=== PATIENT | male | born 2005 | race Caucasian/White ===

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

== ENCOUNTER → 2023-01-28 | Outpatient (CLI) | payer BC, MEDICAID, SELFPAY ==
[2023-01-28 12:09] LABS: Absolute Lymphocyte Count 1.44 X10^3/uL (0.83-4.51); Absolute Neutrophil Count 4.7 X10^3/uL (2.0-7.7); Basophil# 0.02 X10^3/uL; Basophil% 0.3 % (0-1); Eosinophil# 0.12 X10^3/uL; Eosinophils% 1.7 % (0-5); Lymphocyte # 1.44 X10^3/ul (0.83-4.51); Lymphocyte % 20.7 % (19-41); Mean Corp Hgb Conc 34.8 g/dL (32-36); Mean Corpuscular Hgb 30.4 pg (27.0-32.0); Mean Corpuscular Volume 87.5 fL (80-94); Mean Platelet Vol. 10.1 fl (6.2-12.0); Monocyte# 0.68 X10^3/uL; Monocyte% 9.8 % (0-10); NRBC Flagged by Analyzer 0 % (0-5); Neutrophil # 4.66 X10^3/uL (2.7-7.7); Neutrophil % 67.2 % (47-70); Platelet Count 298 K/mm3 (150-450); RBC Distribution Width CV 11.9 % (11.6-14.6); RBC Distribution Width SD 38.5 fl (35.1-43.9); Red Blood Count 5.26 M/mm3 (4.6-6.2); White Blood Count 6.9 K/mm3 (4.4-11.0)
[2023-01-28 13:16] LABS: ALB/GLOB Ratio 1.1 RATIO (0.9-2.4); AST(SGOT) 20 U/L (15-37); Alanine Aminotransfer ALT/SGPT 39 U/L (16-61); Alkaline Phosphatase 87 U/L (45-117); Anion Gap 7 (5-15); BUN 14 mg/dL (7-18); BUN/Creat Ratio 15.5 RATIO (10-20); Calcium,Total 9.2 mg/dL (8.5-10.1); Chloride 110 mmol/L (98-107); Cholesterol 181 mg/dL (200); EST Glomerular Filtration Rate 114 mL/min (>60); Est Glom Filt Rate - Afr Amer 138 mL/min (>60); Globulin 3.5 g/dL (2.2-4.2); Glucose 105 mg/dL (74-106); High Density Lipoprotein 36 mg/dL; Potassium 4.1 mmol/L (3.5-5.1); Protein, Total 7.5 g/dL (6.4-8.2); Sodium Level 141 mmol/L (136-145); Thyroid Stim Hormone (TSH) 0.86 uIU/mL (0.358-3.74); Triglycerides 217 mg/dL; Very Low Density Lipoprotein 43 mg/dL (5-40)
== END | disposition home or self-care (01) ==
LOC: BIMLAB 10:55
PROVIDERS: PCP Nurse Practitioner Family; Referring Provider Nurse Practitioner Family; Visit Provider Nurse Practitioner Family
DX: R63.5 Abnormal weight gain (principal); F41.1 Generalized anxiety disorder; M25.511 Pain in right shoulder
CPT/HCPCS: 36415; 80053; 80061; 84443; 85025

== ENCOUNTER 2023-06-04 22:25 | Emergency (ER) | payer BC, MEDICAID, SELFPAY ==
[2023-06-04 22:25] VITALS: BP 166/103; PULSE 100; RESP 15; TEMP 36.2; O2SAT 94; BMI 31.9
--- NOTE | 2023-06-04 23:03 | RAD_ITS ---
INDICATION: pain EXAMINATION/TECHNIQUE: X-RAY - LEFT XR Hand Min 3 Views 3 VIEWS COMPARISON: none FINDINGS: SOFT TISSUES: No soft tissue swelling or gas. No radiopaque foreign body. BONES/JOINTS: No acute fracture.] Compression screw fixation of the scaphoid without significant sclerosis.. Normal alignment. Preservation of the joint space.. No sclerotic or destructive changes observed. RAD/Hand Min 3 Views IMPRESSION: No acute osseous finding. Previous scaphoid compression screw fixation without evidence of osteonecrosis. Electronically Signed: Gorge Michaud MD at 23:48 EDT ,
--- NOTE | 2023-06-04 23:05 | RAD_ITS ---
STUDY: X-RAY - LEFT CLAVICLE REASON FOR EXAM: Male, 18 years old. pain TECHNIQUE: 2 view(s) of the left clavicle. COMPARISON: February 27, 2022 chest radiograph FINDINGS: No fracture. Normal acromioclavicular articulation. Normal visualized sternoclavicular articulation. Normal mineralization. Normal visualized pulmonary apex. RAD/Clavicle IMPRESSION: Normal x-ray examination of the clavicle. Electronically Signed: Gorge Michaud MD at 23:41 EDT ,
[2023-06-04] MEDS: Acetaminophen 500 MG Tablet 1000 MG PO (23:08)
--- NOTE | 2023-06-04 23:39 | CT_ITS ---
INDICATION: head injury EXAMINATION: CT BRAIN - CT Head or Brain W/O Contrast Injection TECHNIQUE: Multiple axial images were obtained of the head without intravenous contrast. A radiation dose optimization technique was used for this scan. IV Contrast dosage and agent: None. COMPARISON: [Normal FINDINGS: BRAIN PARENCHYMA: No intra- or extra-axial hemorrhage. No evidence of acute infarct. No intracranial mass or mass effect. Unremarkable white matter for age. There is preservation of the griffith/white matter interface. Posterior fossa structures are unremarkable. CSF SPACES: Cerebral volume appropriate for age. No hydrocephalus. Basal cisterns are patent. CALVARIUM, SKULL BASE, PARANASAL SINUSES AND MASTOID AIR CELLS: No acute osseous finding. Paransasal sinuses are clear. Mastoid air cells are clear. ORBITS: Both globes, extraocular muscles, optic nerves and retrobulbar fat appear unremarkable. ASPECTS Score for Acute Strokes: 10 CT/Brain/Head without Contrast IMPRESSION: No CT evidence of acute intracranial hemorrhage or injury. Electronically Signed: Gorge Michaud MD at 0:13 EDT ,
--- NOTE | 2023-06-04 23:39 | ED.RN ---
pt c/o ringing in right ear, vision changes, blurry just don't feel right Dr. Salomon informed of same, new orders received.
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
== END 2023-06-05 00:36 | disposition home or self-care (01) ==
PROVIDERS: Emergency Provider Emergency Medicine; PCP Nurse Practitioner Family; Visit Provider Emergency Medicine
DX: S40.012A Contusion of left shoulder, initial encounter (principal); S63.602A Unspecified sprain of left thumb, initial encounter; V43.62XA Car passenger injured in collision with other type car in traffic accident, initial encounter; W22.12XA Striking against or struck by front passenger side automobile airbag, initial encounter; Y92.410 Unspecified street and highway as the place of occurrence of the external cause; F41.1 Generalized anxiety disorder
CPT/HCPCS: 70450; 73000; 73130; 99283

== ENCOUNTER → 2023-11-12 | Outpatient (CLI) | payer SELFPAY ==
--- NOTE | 2023-11-12 09:43 | RAD_ITS ---
INDICATION: constipation EXAMINATION/TECHNIQUE: X-RAY - XR Abdomen W/ Decub and/or Erect Views COMPARISON: None FINDINGS: BOWEL GAS PATTERN: Non-obstructive. Small amount of retained stool in the colon. FREE AIR: Not assessed on a single supine view. ORGANOMEGALY: Not seen. CALCIFICATIONS: No abnormal calcifications observed. LOWER CHEST: No acute pathology. BONES AND SOFT TISSUES: No acute pathology. RAD/[employer] Decub and/or Erect IMPRESSION: Non-obstructive bowel gas pattern. Small amount of retained stool in colon. Electronically Signed: Dani Lin MD at 19:43 EST ,
--- NOTE | 2023-11-12 09:43 | RAD_ITS ---
INDICATION: back pain EXAMINATION/TECHNIQUE: X-RAY - XR Spine Thoracic 3 Views COMPARISON: None FINDINGS: VERTEBRAE: Preserved vertebral body height. No fracture. No spondylolisthesis. Preservation of the normal thoracic kyphosis. No significant facet arthropathy. DISCS: Disc spaces are maintained. INCLUDED CHEST/ABDOMEN: No acute abnormalities. RAD/Thoracic Spine 3 Views IMPRESSION: No evidence of thoracic spinal fracture or spondylolisthesis. Electronically Signed: Dani Lin MD at 19:44 EST ,
--- NOTE | 2023-11-12 09:45 | RAD_ITS ---
INDICATION: chest wall pain EXAMINATION/TECHNIQUE: X-RAY - XR Ribs Unilateral W/ PA Chest Min 3 Views COMPARISON: FINDINGS: SOFT TISSUES: No soft tissue swelling or gas. BONES: No displaced fracture. No sclerotic or destructive changes observed. VISUALIZED LUNGS: Clear. No pneumothorax. RAD/Ribs Uni Min 3V w/PA Chest IMPRESSION: No evidence of displaced rib fracture. Electronically Signed: Arie Bowden DO at 18:30 EST ,
--- OUTSIDE RECORDS SUMMARY | 2023-11-12 10:06 | XMS RPT_ITS | CCD ---
Author Name Unknown Address [address] [place] [address] Organization [facility] Results Test Name Value Interpretation Reference Range Facil ity Summary Purpose Family History No Family History Records Found Advance Directives No Advanced Directives Records Found Additional Source Comments (unrecognized sect ion and content) No Status Records Found INFORMATION SOURCE (unrecogn ized section and content) FOR RECORDS PERTAINING TO PATIENTS WHO ARE OR HAVE BEEN ENROLLED IN A CHEMICAL DEPENDENCY/SUBSTANCEABUSE PROGRAM, SOME INFORMATION MAY BE OMITTED. This clinical summary was aggregated from multiple sources. Caution should be exercised in using it in the provision of clinical care. This summary normalizes information from multiple sources, and as a consequence, information in this document may materially change the coding, format and clinical context of patient data. In addition, data may be omitted in some cases. CLINICAL DECISIONS SHOULD BE BASED ON THE PRIMARY CLINICAL RECORDS. [employer] provides no warranty or guarantee of the accuracy or completeness of information in this document.
== END | disposition home or self-care (01) ==
LOC: RAD 09:41
PROVIDERS: PCP Nurse Practitioner Family; Referring Provider Internal Medicine Gastroenterology; Visit Provider Internal Medicine Gastroenterology
DX: M54.6 Pain in thoracic spine (principal); R10.9 Unspecified abdominal pain; R07.89 Other chest pain
CPT/HCPCS: 71101; 72072; 74019

== ENCOUNTER → 2024-03-30 | Outpatient (CLI) | payer OTHER, SELFPAY ==
[2024-03-30 13:05] LABS: Vitamin B12 620 pg/mL (211-911); Vitamin D,25 Hydroxy 44.1 ng/mL
[2024-03-30 13:37] LABS: ALB/GLOB Ratio 1.2 RATIO (0.9-2.4); AST(SGOT) 28 U/L (15-37); Alanine Aminotransfer ALT/SGPT 34 U/L (16-61); Albumin, Serum 4.1 g/dL (3.2-5.0); Alkaline Phosphatase 75 U/L (45-117); Anion Gap 6 (5-15); BUN 15 mg/dL (7-18); BUN/Creat Ratio 17.6 RATIO (10-20); Chloride 108 mmol/L (98-107); Cholesterol 156 mg/dL (200); Creatinine, Serum 0.85 mg/dL (0.70-1.30); EST Glomerular Filtration Rate 120 mL/min (>60); Est Glom Filt Rate - Afr Amer 145 mL/min (>60); Globulin 3.5 g/dL (2.2-4.2); Glucose 94 mg/dL (74-106); High Density Lipoprotein 48 mg/dL; Potassium 4.2 mmol/L (3.5-5.1); Protein, Total 7.6 g/dL (6.4-8.2); Sodium Level 138 mmol/L (136-145); Triglycerides 55 mg/dL; Very Low Density Lipoprotein 11 mg/dL (5-40)
[2024-03-30 21:40] LABS: Absolute Neutrophil Count 5.1 X10^3/uL (2.0-7.7); Basophil# 0.05 X10^3/uL; Basophil% 0.7 % (0-1); Eosinophil# 0.06 X10^3/uL; Eosinophils% 0.8 % (0-5); Hemoglobin 15.1 g/dL (13.0-16.5); Lymphocyte % 18.4 % (19-41); Mean Corp Hgb Conc 33.6 g/dL (32-36); Mean Corpuscular Hgb 29.5 pg (27.0-32.0); Mean Corpuscular Volume 88.1 fL (80-94); Mean Platelet Vol. 10.5 fl (6.2-12.0); Monocyte# 0.53 X10^3/uL; Monocyte% 7.5 % (0-10); NRBC Flagged by Analyzer 0 % (0-5); Neutrophil # 5.06 X10^3/uL (2.7-7.7); Neutrophil % 71.8 % (47-70); Platelet Count 354 K/mm3 (150-450); RBC Distribution Width CV 12.2 % (11.6-14.6); RBC Distribution Width SD 39.5 fl (35.1-43.9); Red Blood Count 5.11 M/mm3 (4.6-6.2); White Blood Count 7.1 K/mm3 (4.4-11.0)
== END | disposition home or self-care (01) ==
LOC: VSLAB 09:30
PROVIDERS: PCP Nurse Practitioner Family; Visit Provider Nurse Practitioner Family
DX: Z00.00 Encounter for general adult medical examination without abnormal findings (principal); E56.9 Vitamin deficiency, unspecified
CPT/HCPCS: 36415; 80053; 80061; 82306; 82607; 83036; 84443; 85025

== ENCOUNTER 2025-05-20 17:43 | Emergency (ER) | payer SELFPAY ==
[2025-05-20 17:44] VITALS: BP 169/102; PULSE 116; RESP 18; TEMP 36.6; O2SAT 98; BMI 30.7
--- NOTE | 2025-05-20 18:11 | EDS_ITS ---
HPI History of Present Illness Chief Complaint: Numb/Ting PFSH PFSH Medical History Asthma Back pain Bilateral hydrocele Closed fracture of scaphoid of left wrist (~01/2021) Encounter for preventative adult health care examination Epidermoid cyst of skin of inguinal region Generalized anxiety disorder Hypersomnia Infection Injury of left hand Left wrist injury Major depression, single episode Neck pain, acute Panic attacks Paresthesia of lower extremity Pilonidal cyst Pilonidal cyst with abscess PTSD (post-traumatic stress disorder) Right shoulder pain Weight gain Home Medications ?Medication ?Instructions ?Recorded ?Last Taken ?Type duloxetine 60 mg capsule,delayed See Rx Instructions . Route 04/08/23 Unknown Rx release .COMPLEX #30 caps hydroxyzine HCl 25 mg tablet 25 mg PO TID PRN anxiety #20 tabs 05/20/25 Unknown Rx Allergy/AdvReac Type Severity Reaction Status Date / Time No Known Allergies Allergy Verified 05/20/25 17:45 Family History Father Alcoholism Asthma Prostate CA Mental disorder Mother Anemia Anxiety Depression Diabetes Hypertension Grandmother Depression Grandfather Myocardial infarction Skin cancer Surgical History H/O wrist surgery Social History Smoking Status: Never smoker alcohol intake: current details: social substance use type: marijuana what type of physical activity do you participate in: weight training frequency: 5-6 times per week EXAM Physical Exam Const Vital Signs: 05/20/25 17:44 05/20/25 18:35 05/20/25 18:44 Temperature 98 F 97.9 F Temperature Source Oral Pulse Rate 116 H 94 94 Respiratory Rate 18 23 H 23 H Blood Pressure 169/102 H 132/90 H 132/90 H Blood Pressure Mean 124 104 104 Pulse Ox 98 96 96 Oxygen Delivery Method Room Air Room Air MDM MDM MDM Narrative Medical decision making narrative: HISTORY OF PRESENT ILLNESS: Chief complaint: Numbness/tingling/paresthesias 20-year-old male history of of depression, PTSD, panic attacks, anxiety, notes he was driving to his prior to arrival he felt like his hands were becoming numb started breathing really fast and feeling anxious he noted the numbness continued to worsen move up his arms surrounded his mouth. This has since essentially resolved. Denies any head trauma. Denies neck pain. Denies slurred speech, facial drooping, focal weakness numbness or loss of sensation or coordination. REVIEW OF SYSTEMS: Pertinent positives: Numbness, tingling Pertinent negatives: As per HPI PHYSICAL EXAM: Nursing triage notes reviewed, Vital signs reviewed Constitutional: please see [facility] HENT: MMM Eyes: Pupils equal round and reactive to light, Extraocular muscles intact Neck: No stridor, no JVD, full neck ROM Lungs: Clear to auscultation, No wheezing or rales. No increased work of breathing, no conversational dyspnea, no accessory muscle use, no nasal flaring. No respiratory distress noted Heart: Regular rate and rhythm, No murmurs, No rubs and No gallops, 2+ distal pulses (radial, femoral, posterior tibial) in all extremities Abdomen: Soft, there is no tenderness, rigidity, rebound or guarding, no obvious peritoneal signs, no palpable pulsatile abdominal masses, no auscultated abdominal bruit : No CVAT Extremities: No edema Neuro: Alert and oriented x3, neuro exam at baseline, cranial nerves II through XII are intact. No pain with extraocular muscle movement. There is negative test of skew. 5 of 5 strength in upper and lower extremities in flexion extension. Intact sensation to light touch in upper and lower extremity dermatomes. No truncal or extremity ataxia. No dysdiadochokinesia. Normal gait. 2+ reflexes in upper and lower extremities. No meningeal signs. Negative Babinski. NIH of 0. Skin: No rash or lesions noted MEDICAL DECISION MAKING: Chief Complaint: please see [facility] External records reviewed: Reviewed prior ED visit Factors affecting care: As per [facility] Social determinants of health: none History obtained from others: none Consults: none [facility] Narrative: Patient was initially hypertensive with a blood pressure 169/102, tachycardic with heart rate 116, afebrile and nontoxic-appearing. Exam without focal neurologic deficits. I considered the following differential diagnosis: Hyperventilation, acute CVA Patient's exam is most consistent with hyperventilation. There are no focal neurologic deficits to suggest ICH, spinal cord injury, CVA. Repeated vital signs for the resolved. Patient noted complete resolution of symptoms now that he is more calm. I suspect he is suffering from hyperventilation. The patient and/or family, caregivers express understanding. The patient and/or family, caregivers agrees with the plan. Shared decision making: I will have a discussion with the patient and or visitors regarding risk/benefits of further testing or admission. They will be made aware of of the risk/benefits inherent in this decision they will be given the opportunity to voice understanding. Total critical care time today provided was at least 0 minutes. This excludes separately billable procedures. Critical care time (if documented) is secondary to the patient having high probability of clinically significant/life threatening deterioration in the patient's condition which required my urgent intervention. Impression: 1. Acute hyperventilation syndrome 2. History of anxiety Dispo: Discharge home This note was generated with [employer] dictation software. It may contain incorrect words, spelling, and punctuation that were not noted in review of the chart prior to signing. Discharge Plan Triage Chief Complaint: Numb/Ting ED Provider: Polo Crespo Dx/Rx/DC Orders Clinical Impression: Acute hyperventilation Instructions: ED Hyperventilation Syndrome Prescriptions: New hydroxyzine HCl 25 mg tablet 25 mg PO TID PRN (Reason: anxiety) Qty: 20 0RF No Action duloxetine 60 mg capsule,delayed release(DR/EC) See Rx Instructions .ROUTE .COMPLEX Qty: 30 0RF Dose Instruction: TAKE 1 CAPSULE BY MOUTH ONCE DAILY Rx Instructions: TAKE 1 CAPSULE BY MOUTH ONCE DAILY Primary Care Provider: Feng Johnson Referrals: Feng Johnson, HOT SEALING MACHINE OPERATOR-C [Primary Care Provider] - Activity Restrictions/Additional Instructions: Thank you for trusting us with your care today! Your presentation is most consistent with hyperventilation. Your neurologic exam was not consistent with a life or limb threatening emergency such as stroke, bleeding in the brain or spinal cord injury. Please take prescribed hydroxyzine as needed for anxiety. Please return to the emergency department if your symptoms change or worsen. Please follow with your primary care physician for further outpatient evaluation and management. Print Language: Scottish Disposition Disposition: Home, Self Care
--- OUTSIDE RECORDS SUMMARY | 2025-05-20 18:33 | XMS RPT_ITS | CCD ---
Author Organization [facility] Care Team Providers Care Landscaping Specialist Name Role Phone Mcbride REGISTERED PHARMACY TECHNICIAN, REGISTERED PHARMACY TECHNICIAN-C Kendall Primary Care Provider Reed REGISTERED PHARMACY TECHNICIAN, REGISTERED PHARMACY TECHNICIAN-C Kendall Attending Provider Reed REGISTERED PHARMACY TECHNICIAN, REGISTERED PHARMACY TECHNICIAN-C Kendall Referring Provider BETO Eid-C Laura Attending Provider Dr. Hussein Terrazas Attending Provider BETO Jean Attending Provider Dr. Beny Lorenzo Attending Provider Dr. Tracie Anderson Attending Provider [phone] Gabino, Dr. Pathak Attending Provider Reed REGISTERED PHARMACY TECHNICIAN, Kendall Primary Care Unavailable Gorge Jean Attending Unavailable Mcbride REGISTERED PHARMACY TECHNICIAN, Kendall Referring Unavailable Mcbride REGISTERED PHARMACY TECHNICIAN, Kendall Referring Unavailable Mcbride REGISTERED PHARMACY TECHNICIAN, Kendall Primary Care Unavailable Michelle Valentin Attending Unavailable Mcbride REGISTERED PHARMACY TECHNICIAN, Kendall Referring Unavailable Lawson Lloyd Attending Unavailable Mcbride REGISTERED PHARMACY TECHNICIAN, Kendall Primary Care Unavailable FriendLawson Referring Unavailable Lawson Lloyd Attending Unavailable Mcbride VSC, Kendall Primary Care Unavailable Mcbride VSC, Kendall Attending Unavailable Mcbride VSC, Kendall Primary Care Unavailable Mcbride REGISTERED PHARMACY TECHNICIAN, Kendall Primary Care Unavailable Daniel Salomon Attending Unavailable Mcbride REGISTERED PHARMACY TECHNICIAN, Kendall Primary Care Unavailable Beny Lorenzo Attending Unavailable Medications Current Medications Medication Drug Class(es) Dates Sig (Normalized) Sig (Original) ALPRAZolam 1 mg oral tablet (3 sources) Benzodiazepine Start: 03-10-2022 take 1 tablet by mouth twice daily Alprazolam (Xanax) 1 mg tablet Active 1 MG PO TWICE A DAY 30 March 10, 2022 12:00am DULoxetine 30 mg delayed release oral capsule (3 sources) Serotonin and Norepinephrine Reuptake Inhibitor Start: 03-09-2022 take 1 capsule by mouth once daily Duloxetine (Cymbalta) 30 mg capsule,delayed release(DR/EC) Active 30 MG PO DAILY March 09, 2022 12:00am meloxicam 15 mg oral tablet (9 sources) Nonsteroidal Anti-inflammatory Drug Start: 02-26-2022 End: 02-28-2022 take 15 mg by mouth once daily Meloxicam Active 15 MG PO DAILY February 28, 2022 12:49pm [place] (Nk) (1 source) Start: 01-23-2022 [place] (Nk) Active January 23, 2022 12:00am Completed/Discontinued Medications Medication Drug Class(es) Dates Sig (Normalized) Sig (Original) adapalene 0.003 mg/mg / benzoyl peroxide 0.025 mg/mg topical gel (6 sources) Retinoid Start: 06-09-2018 End: 10-10-2021 Adapalene-Benzoyl Peroxide (Epiduo Forte) 0.3-2.5 % gel with pump Discontinued 1 APPLIC TOPICAL DAILY June 09, 2018 12:00am October 10, 2021 10:21am amoxicillin 875 mg / clavulanate 125 mg oral tablet (18 sources) Penicillin-class Antibacterial Start: 01-23-2022 End: 02-11-2022 take 1 tablet by mouth twice daily Amoxicillin-Pot Clavulanate Discontinued 1 TABLET PO TWICE A DAY January 23, 2022 3:03pm February 11, 2022 1:40pm Start: 10-10-2021 End: 10-24-2021 take 1 tablet by mouth twice daily Amoxicillin-Pot Clavulanate Discontinued 1 TABLET PO TWICE A DAY October 10, 2021 10:57am October 24, 2021 10:15am hydrOXYzine hydrochloride 25 mg oral tablet (3 sources) Antihistamine Start: 03-02-2022 End: 03-13-2022 take 25 mg by mouth three times daily Hydroxyzine Hcl Discontinued 25 MG PO THREE TIMES A DAY March 02, 2022 12:00am March 13, 2022 10:11am ibuprofen 200 mg oral capsule (6 sources) Nonsteroidal Anti-inflammatory Drug Start: 06-09-2018 End: 10-10-2021 take 200 mg by mouth three times daily Ibuprofen Discontinued 200 MG PO THREE TIMES A DAY June 09, 2018 12:00am October 10, 2021 10:20am 24 hr mirabegron 25 mg extended release oral tablet (6 sources) beta3-Adrenergic Agonist Start: 03-15-2019 End: 10-10-2021 Mirabegron Discontinued PO 90 March 15, 2019 12:00am October 10, 2021 10:20am naproxen 500 mg oral tablet (6 sources) Nonsteroidal Anti-inflammatory Drug Start: 08-23-2017 End: 10-10-2021 take 500 mg by mouth every twelve hours Naproxen Discontinued 500 MG PO Q12H August 23, 2017 1:00am October 10, 2021 10:20am sulfamethoxazole 800 mg / trimethoprim 160 mg oral tablet (6 sources) Dihydrofolate Reductase Inhibitor Antibacterial, Sulfonamide Antimicrobial Start: 06-13-2018 End: 10-10-2021 take 1 tablet by mouth twice daily Sulfamethoxazole- Trimethoprim Discontinued 1 TABLET PO TWICE A DAY June 13, 2018 12:00am October 10, 2021 10:20am Problems Active Problems Problem Classification Problem Date Documented Da te Episodic/Chronic Anxiety disorders (20 sources) Anxiety; Translations: [Anxiety disorder, unspecified] Chronic Genitourinary symptoms and ill-defined conditions (6 sources) Dysuria; Translations: [Dysuria] Episodic Immunizations and screening for infectious disease (6 sources) Contact with and (suspected) exposure to other viral communicable diseases; Translations: [Contact with or suspected exposure to other viral communicable disease] Episodic Nonspecific chest pain (5 sources) Chest pain; Translations: [Chest pain, unspecified] Episodic Other injuries and conditions due to external causes (6 sources) Injury of left hand; Translations: [Unspecified injury of left wrist, hand and finger(s), initial encounter] Episodic Other injuries and conditions due to external causes (6 sources) Injury of wrist; Translations: [Unspecified injury of left wrist, hand and finger(s), initial encounter] Episodic Other male genital disorders (6 sources) Pain of left testicle; Translations: [Left testicular pain] Episodic Other male genital disorders (6 sources) Left testicular pain; Translations: [Unspecified disorder of male genital organs] Episodic Other male genital disorders (5 sources) Disorder of male genital organ; Translations: [Hydrocele, unspecified] Episodic Other upper respiratory disease (6 sources) Respiratory tract congestion; Translations: [Nasal congestion] Episodic Skin and subcutaneous tissue infections (20 sources) Pilonidal cyst with abscess; Translations: [Pilonidal cyst with abscess] Episodic Sprains and strains (10 sources) Strain of muscle of hip; Translations: [Strain of unspecified muscles, fascia and tendons at thigh level, left thigh, initial encounter] Episodic Past or Other Problems Problem Classification Problem Date Documented Da te Episodic/Chronic Abdominal pain (12 sources) Bilateral pain of inguinal region; Translations: [Right lower quadrant pain] Onset: 11-12-2023 Episodic Fracture of upper limb (6 sources) Closed fracture of scaphoid bone of wrist; Translations: [Unspecified fracture of navicular [scaphoid] bone of left wrist, initial encounter for closed fracture] Onset: 09-13-2020 Episodic Spondylosis; intervertebral disc disorders; other back problems (1 source) Pain in thoracic spine; Translations: [Pain in thoracic spine] Onset: 11-17-2023 Episodic Superficial injury; contusion (7 sources) Contusion of hip; Translations: [Contusion of right hip, initial encounter] Onset: 11-19-2023 Episodic Results Test Name Value Interpretation Reference Range Facility CBC W/Diff, Automatedon - Absolute Lymph 1.30 X10 3/uL Normal 0.83-4.51 [facility] Comment on above: Performed By: #### L 100.0100, L500.4050, L500.4100, L501.9520, L506.1000, L503.0105, L501.9985 ####[facility] [address] [place], [place], [id number] Absolute Neut 5.1 X10 3/uL Normal 2.0-7.7 [facility] Comment on above: Performed By: #### L 100.0100, L500.4050, L500.4100, L501.9520, L506.1000, L503.0105, L501.9985 ####[facility] [address] [place], [address] Basophils/100 WBC (Bld) 0.7 % Normal 0-1 [facility] Comment on above: Performed By: #### L 100.0100, L500.4050, L500.4100, L501.9520, L506.1000, L503.0105, L501.9985 ####[facility] [address] [place], [address] Eosinophils/100 WBC (Bld) 0.8 % Normal 0-5 [facility] Comment on above: Performed By: #### L 100.0100, L500.4050, L500.4100, L501.9520, L506.1000, L503.0105, L501.9985 ####[facility] [address] [place], [address] Erythrocyte distribution width (RBC) [Ratio] 12.2 % Normal 11.6-14.6 [facility] Comment on above: Performed By: #### L 100.0100, L500.4050, L500.4100, L501.9520, L506.1000, L503.0105, L501.9985 ####[facility] [address] [place], [address] Hematocrit (Bld) [Volume fraction] 45.0 % Normal 40-54 [facility] Comment on above: Performed By: #### L 100.0100, L500.4050, L500.4100, L501.9520, L506.1000, L503.0105, L501.9985 ####[facility] [address] [place], [address] Hemoglobin (Bld) [Mass/Vol] 15.1 g/dL Normal 13.0-16.5 [facility] Comment on above: Performed By: #### L 100.0100, L500.4050, L500.4100, L501.9520, L506.1000, L503.0105, L501.9985 ####[facility] [address] [place], [address] IG% 0.800 Normal 0.0-0.9 [facility] Comment on above: Result Comment: IG% - Immature Granulocytes (promyelocytes, myelocytes and metamyelocytes) > 1% indicates that a LEFT SHIFT is Present. Performed By: #### L 100.0100, L500.4050, L500.4100, L501.9520, L506.1000, L503.0105, L501.9985 ####[facility] [address] [place], [address] Lymphocytes/100 WBC (Bld) 18.4 % Low 19-41 [facility] Comment on above: Performed By: #### L 100.0100, L500.4050, L500.4100, L501.9520, L506.1000, L503.0105, L501.9985 ####[facility] [address] [place], [address] MCH (RBC) [Entitic mass] 29.5 pg Normal 27.0-32.0 [facility] Comment on above: Performed By: #### L 100.0100, L500.4050, L500.4100, L501.9520, L506.1000, L503.0105, L501.9985 ####[facility] [address] [place], [address] MCHC (RBC) [Mass/Vol] 33.6 g/dL Normal 32-36 [facility] Comment on above: Performed By: #### L 100.0100, L500.4050, L500.4100, L501.9520, L506.1000, L503.0105, L501.9985 ####[facility] [address] [place], [address] MCV (RBC) [Entitic vol] 88.1 fL Normal 80-94 [facility] Comment on above: Performed By: #### L 100.0100, L500.4050, L500.4100, L501.9520, L506.1000, L503.0105, L501.9985 ####[facility] [address] [place], [address] Monocytes/100 WBC (Bld) 7.5 % Normal 0-10 [facility] Comment on above: Performed By: #### L 100.0100, L500.4050, L500.4100, L501.9520, L506.1000, L503.0105, L501.9985 ####[facility] [address] [place], [address] Neutrophils/100 WBC (Bld) 71.8 % High 47-70 [facility] Comment on above: Performed By: #### L 100.0100, L500.4050, L500.4100, L501.9520, L506.1000, L503.0105, L501.9985 ####[facility] [address] [place], [address] Nucleated RBC (Bld) [#/Vol] 0 10*3/uL Normal 0-5 [facility] Comment on above: Performed By: #### L 100.0100, L500.4050, L500.4100, L501.9520, L506.1000, L503.0105, L501.9985 ####[facility] [address] [place], [address] Platelet mean volume (Bld) [Entitic vol] 10.5 fL Normal 6.2-12.0 [facility] Comment on above: Performed By: #### L 100.0100, L500.4050, L500.4100, L501.9520, L506.1000, L503.0105, L501.9985 ####[facility] [address] [facility] [address] Platelets (Bld) [#/Vol] 354 10*3/uL Normal 150-450 [facility] Comment on above: Performed By: #### L 100.0100, L500.4050, L500.4100, L501.9520, L506.1000, L503.0105, L501.9985 ####[facility] [address] [place], [address] RBC (Bld) [#/Vol] 5.11 10*6/uL Normal 4.6-6.2 [facility] Comment on above: Performed By: #### L 100.0100, L500.4050, L500.4100, L501.9520, L506.1000, L503.0105, L501.9985 ####[facility] [address] [place], [address]( RDW SD 39.5 fl Normal 35.1-43.9 [facility] Comment on above: Performed By: #### L 100.0100, L500.4050, L500.4100, L501.9520, L506.1000, L503.0105, L501.9985 ####[facility] [address] [place], [address] WBC (Bld) [#/Vol] 7.1 10*3/uL Normal 4.4-11.0 [facility] Comment on above: Performed By: #### L 100.0100, L500.4050, L500.4100, L501.9520, L506.1000, L503.0105, L501.9985 ####[facility] [address] [place], [address] Comprehensive Metabolic Prof [facility] 03-30-2024 Albumin [Mass/Vol] 4.1 g/dL Normal 3.2-5.0 [facility] Comment on above: Performed By: #### L 100.0100, L500.4050, L500.4100, L501.9520, L506.1000, L503.0105, L501.9985 ####[facility] [address] [place], [address] Albumin/Globulin [Mass ratio] 1.2 {ratio} Normal 0.9-2.4 [facility] Comment on above: Performed By: #### L 100.0100, L500.4050, L500.4100, L501.9520, L506.1000, L503.0105, L501.9985 ####[facility] [address] [place], [address] ALK P 75 U/L Normal 45-117 [facility] Comment on above: Performed By: #### L 100.0100, L500.4050, L500.4100, L501.9520, L506.1000, L503.0105, L501.9985 ####[facility] [address] [place], [address] ALT [Catalytic activity/Vol] 34 U/L Normal 16-61 [facility] Comment on above: Performed By: #### L 100.0100, L500.4050, L500.4100, L501.9520, L506.1000, L503.0105, L501.9985 ####[facility] [address] [place], [address] AST [Catalytic activity/Vol] 28 U/L Normal 15-37 [facility] Comment on above: Performed By: #### L 100.0100, L500.4050, L500.4100, L501.9520, L506.1000, L503.0105, L501.9985 ####[facility] [address] [place], [address] Bilirubin [Mass/Vol] 0.60 mg/dL Normal 0.20-1.00 [facility] Comment on above: Result Comment: For patients on eltrombopag therapy, use of Dimension [place] TBIL is not recommended. Performed By: #### L 100.0100, L500.4050, L500.4100, L501.9520, L506.1000, L503.0105, L501.9985 ####[facility] [address] [place], [address] BUN/CRE 17.6 RATIO Normal 10-20 [facility] Comment on above: Performed By: #### L 100.0100, L500.4050, L500.4100, L501.9520, L506.1000, L503.0105, L501.9985 ####[facility] [address] [place], [address] CA,Total 9.0 mg/dL Normal 8.5-10.1 [facility] Comment on above: Performed By: #### L 100.0100, L500.4050, L500.4100, L501.9520, L506.1000, L503.0105, L501.9985 ####[facility] [address] [place], [address] Chloride [Moles/Vol] 108 mmol/L High 98-107 [facility] Comment on above: Performed By: #### L 100.0100, L500.4050, L500.4100, L501.9520, L506.1000, L503.0105, L501.9985 ####[facility] [address] [place], [address] CO2 [Moles/Vol] 24.0 mmol/L Normal 21.0-32.0 [facility] Comment on above: Performed By: #### L 100.0100, L500.4050, L500.4100, L501.9520, L506.1000, L503.0105, L501.9985 ####[facility] [address] [place], [place], [id number] Creatinine [Mass/Vol] 0.85 mg/dL Normal 0.70-1.30 [facility] Comment on above: Result Comment: The validity of the calculated GFR GFRAA in patients over 70 years has not been determined. Clinical correlation is essential. Performed By: #### L 100.0100, L500.4050, L500.4100, L501.9520, L506.1000, L503.0105, L501.9985 ####[facility] [address] [place], [place], [phone](615) EST GFR - AA 145 mL/min Normal >60 [facility] Comment on above: Result Comment: Afri can [place]ian GFR Calc Performed By: #### L 100.0100, L500.4050, L500.4100, L501.9520, L506.1000, L503.0105, L501.9985 ####[facility] [address] [place], [place], [phone](999) GAP 6 Normal 5-15 [facility] Comment on above: Performed By: #### L 100.0100, L500.4050, L500.4100, L501.9520, L506.1000, L503.0105, L501.9985 ####[facility] [address] [place], [place], [phone](962) GFR/1.73 sq M.predicted among non-blacks MDRD (S/P/Bld) [Vol rate/Area] 120 mL/min/{1.73_m2} Normal >60 [facility] Comment on above: Result Comment: Non- GFR Calc Performed By: #### L 100.0100, L500.4050, L500.4100, L501.9520, L506.1000, L503.0105, L501.9985 ####[facility] [address] [place], [place], [phone]) Globulin (S) [Mass/Vol] 3.5 g/dL Normal 2.2-4.2 [facility] Comment on above: Performed By: #### L 100.0100, L500.4050, L500.4100, L501.9520, L506.1000, L503.0105, L501.9985 ####[facility] [address] [place], [address] Glucose [Mass/Vol] 94 mg/dL Normal 74-106 [facility] Comment on above: Performed By: #### L 100.0100, L500.4050, L500.4100, L501.9520, L506.1000, L503.0105, L501.9985 ####[facility] [address] [place], [address] Potassium [Moles/Vol] 4.2 mmol/L Normal 3.5-5.1 [facility] Comment on above: Performed By: #### L 100.0100, L500.4050, L500.4100, L501.9520, L506.1000, L503.0105, L501.9985 ####[facility] [address] [place], [address] Sodium [Moles/Vol] 138 mmol/L Normal 136-145 [facility] Comment on above: Performed By: #### L 100.0100, L500.4050, L500.4100, L501.9520, L506.1000, L503.0105, L501.9985 ####[facility] [address] [place], [address] T PROT 7.6 g/dL Normal 6.4-8.2 [facility] Comment on above: Performed By: #### L 100.0100, L500.4050, L500.4100, L501.9520, L506.1000, L503.0105, L501.9985 ####[facility] [address] [place], [address] Urea nitrogen [Mass/Vol] 15 mg/dL Normal 7-18 [facility] Comment on above: Performed By: #### L 100.0100, L500.4050, L500.4100, L501.9520, L506.1000, L503.0105, L501.9985 ####[facility] [address] [place], [address] Hemoglobin A1con 03-30-2024 HbA1c (Bld) [Mass fraction] 5.0 % Normal 3.8-5.6 [facility] Comment on above: Result Comment: Norm al < 5.7 % Prediabetic 5.7 - 6.4 % Diabetic >or= 6.5 % Please note range changes. Performed By: #### L 100.0100, L500.4050, L500.4100, L501.9520, L506.1000, L503.0105, L501.9985 ####[facility] [address] [place], [address] Lipid Profileon 03-30-2024 Cholesterol [Mass/Vol] 156 mg/dL Normal 200 [facility] Comment on above: Result Comment: <200 mg/dL Desirable 200-240 mg/dL Borderline >240 mg/dL High Risk Performed By: #### L 100.0100, L500.4050, L500.4100, L501.9520, L506.1000, L503.0105, L501.9985 ####[facility] [address] [place], [address] Cholesterol in HDL [Mass/Vol] 48 mg/dL Normal [facility] Comment on above: Result Comment: The drugs N-Acetylcysteine and Metamizole may falsely depress this assay. Reference Range HDL <40 mg/dL Low HDL Cholesterol HDL >or= 60 mg/dL High HDL Cholesterol Performed By: #### L 100.0100, L500.4050, L500.4100, L501.9520, L506.1000, L503.0105, L501.9985 ####[facility] [address] [place], [address] Cholesterol in LDL [Mass/Vol] 97 mg/dL Normal 0-130 [facility] Comment on above: Performed By: #### L 100.0100, L500.4050, L500.4100, L501.9520, L506.1000, L503.0105, L501.9985 ####[facility] [address] [place], [address] Cholesterol in VLDL [Mass/Vol] 11 mg/dL Normal 5-40 [facility] Comment on above: Performed By: #### L 100.0100, L500.4050, L500.4100, L501.9520, L506.1000, L503.0105, L501.9985 ####[facility] [address] [place], [address] Triglyceride [Mass/Vol] 55 mg/dL Normal [facility] Comment on above: Result Comment: The drugs N-Acetylcysteine and Metamizole may falsely depress this assay. Serum Triglycerides Reference Interval Normal <150 mg/dL Borderline high 150 - 199 mg/dL High 200 - 499 mg/dL Very High > or = 500 mg/dL Performed By: #### L 100.0100, L500.4050, L500.4100, L501.9520, L506.1000, L503.0105, L501.9985 ####[facility] [address] [place], [address] Thyroid Stim Hormone (TSH)on 03-30-2024 TSH 0.80 uIU/mL Normal 0.358-3.74 [facility] Comment on above: Performed By: #### L 100.0100, L500.4050, L500.4100, L501.9520, L506.1000, L503.0105, L501.9985 ####[facility] [address] [place], [address](088) Vitamin B12on 03-30-2024 Cobalamin (Vitamin B12) [Mass/Vol] 620 pg/mL Normal 211-911 [facility] Comment on above: Performed By: #### L 100.0100, L500.4050, L500.4100, L501.9520, L506.1000, L503.0105, L501.9985 ####[facility] [address] [place], [address] Vitamin D,25 Hydroxyon 03-30 Vitamin D 25-OH 44.1 ng/mL Normal [facility] Comment on above: Result Comment: Lynn min D 25(OH) Status Range Deficiency <20 ng/mL (50nmol/L) Insufficiency 20 - 30 ng/mL (50 - 75 nmol/L) Sufficiency 30 - 100 ng/mL (75 - 250 nmol/L) Toxicity >100 ng/mL (>250 nmol/L) Performed By: #### L 100.0100, L500.4050, L500.4100, L501.9520, L506.1000, L503.0105, L501.9985 ####[facility] [address] [place], [place], [id number] Abd Inc Decub and/or Erecton 11-12-2023 Abd Inc Decub and/or Erect [facility] Services [address] [place] [address] Abd Inc Decub and/or Erect MR#: [id number] Acct: [id number] Name: DREW ARRIETA Rep #: [id number] : 2005 M 18 From: Dani carlson MD PCP: JIMMY Ronquillo Status: REG CLI Study: Abd Inc Decub and/or Erect Date of Exam: 11/11 Exam# [id number] Ordering Dr: Lawson Lloyd DO [id number] INDICATION: constipation EXAMINATION/TECHNIQUE: X-RAY - XR Abdomen W/ Decub and/or Erect Views COMPARISON: None FINDINGS: BOWEL GAS PATTERN: Non-obstructive. Small amount of retained stool in the colon. FREE AIR: Not assessed on a single supine view. ORGANOMEGALY: Not seen. CALCIFICATIONS: No abnormal calcifications observed. LOWER CHEST: No acute pathology. BONES AND SOFT TISSUES: No acute pathology. RAD/[employer] Decub and/or Erect IMPRESSION: Non-obstructive bowel gas pattern. Small amount of retained stool in colon. Electronically Signed: Dani Lin MD at 19:43 EST , CC: JIMMY Mcbried; Lawson Lloyd DO Boat Hop: Signed Normal [facility] Gastroenterology Visit Repor ton 11-12-2023 Gastroenterology Visit Report [facility] [address] [place] [address] OFFICE VISIT Date of Service: 11/12/23 MR#: [id number] Acct: [id number] Name: DREW ARRIETA Rep #: [id number] : 2005 Provider: Lawson Lloyd DO Age/Sex: 18/M [place] [facility] [place]: Signed Intake Vital Signs 06/04/23 22:25 Height 5 ft 11 in Intake Visit Reasons: Abdominal pain Chief Complaint: Abdominal pain Medicare Compliance Auditor Required: No Accompanied by: Self Is patient in pain?: Yes (Left flank) Pain scale (1-10): 6 Allergies No Known Allergies Allergy (Verified 11/12/23 09:16) Medications duloxetine 60 mg capsule,delayed release See Rx Instructions .Route .COMPLEX #30 caps 04/08/23 [Rx Confirmed 11/12/23] [facility] Medical History Asthma Back pain Bilateral hydrocele Closed fracture of scaphoid of left wrist ( 01/2021) Encounter for preventative adult health care examination Epidermoid cyst of skin of inguinal region Generalized anxiety disorder Hypersomnia Infection Injury of left hand Left wrist injury Major depression, single episode Neck pain, acute Panic attacks Paresthesia of lower extremity Pilonidal cyst Pilonidal cyst with abscess PTSD (post-traumatic stress disorder) Right shoulder pain Weight gain Surgical History H/O wrist surgery Family History Father Alcoholism Asthma Prostate [place] Mental disorder Mother Anemia Anxiety Depression Diabetes Hypertension Grandmother Depression Grandfather Myocardial infarction Skin cancer Social History Smoking Status: Never smoker alcohol intake: current details: social substance use type: marijuana what type of physical activity do you participate in: weight training frequency: 5-6 times per week HPI HPI Chief Complaint: Abdominal pain Details: DREW ARRIETA, is a 18 M who presents to the office today for abdominal pain *BGI established 03.06.22 with abdominal pain/cramping, chest pain, nausea, early satiety. BM are small, frequent and watery. He has had increased anxiety of late which have required ED visits, hydroxyzine has been helpful. ?Biochemical???ESR, haptoglobin, D-Dimer, CMP, CRP, ceruloplasmin, ferritin, CPK, copper, GAME, ANCA, AMA, ASM, celiac without pertinent abnormality ? Stool calprotectin, lactoferrin WNL ?CT abd/pel 03.08.22???without acute/chronic finding ?KUB 6.29.22???possible thumb-printing gas pattern of transverse colon; colonic wall edema ?KUB 7.1.22???large fecal retention OV 8.5.22 PCP has been working with him regarding anxiety and has started buspar with PRN Xanax. Abdominal pain has improved though now notes bloating. GI perspective he has IBS which is improving with management of mental health. Follow up PRN OV 03..24 Occasional diarrhea possibly contributed to dairy or red meat. Frequent nausea, abdominal pain located near LUQ through left flank, across lower abdomen and into pelvic/groin area, indigestion and heartburn in the mornings, after meals, and during night. Almost constant feeling nausea. Reports daily to twice daily formed BMs. ROS Const Constitutional: Positive for fatigue; No fever(s), frequent falls, headache(s), weakness or weight change ENT ENT: No headache(s) or difficulty swallowing Cardio Cardiology: No leg pain with exertion Gastro GI: Positive for abdominal pain, bloating, constipation, diarrhea, heartburn and nausea/dyspepsia; No change in bowel habits, difficulty swallowing, excessive flatus, Vomiting blood/hematemesis, Blood in stool or vomiting Musc Musculoskeletal: Positive for joint pain, back pain, joint swelling, muscle cramps and muscle weakness; No numbness, stiffness, tingling, Arthritis, sciatica, restless legs, leg pain at night or leg pain with exertion Skin Skin: No dry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 classic neutrophil cyt oplasmic antibody assay (units/volume)on 03-06-2022 Neutrophil cytoplasmic Ab.classic Qn (S) <1:20 titer Neg:<1:20 [facility] Work Phone: [phone] Serum mitochondria antibody detectionon 03-06-2022 Mitochondria Ab Ql (S) <20.0 Units 0.0-20.0 [facility] Work Phone: [phone] Comment on above: Negative 0.0 - 20.0 Equivocal 20.1 - 24.9 Positive >24.9Mitochondrial (M2) Antibodies are found in 90-96% ofpatients with primary biliary cirrhosis.Performed at: [employer] [address] [id number] Director: Demarco See PhD, Phone: [phone] Serum or plasma C reactive p rotein measurement (mass/volume)on 03-06-2022 CRP [Mass/Vol] mg/L 0.0-3.0 [facility] Work Phone: Comment on above: C-Reactive Protein ( CRP) provides useful information for thediagnosis, therapy and monitoring of inflammatory processesand associated diseases. For the evaluation of Relative Riskfor Cardiovascular Disease, a High Sensitivity CRP (HSCRP)should be ordered. Serum or plasma IgA measurem ent (mass/volume)on 03-06-2022 IgA [Mass/Vol] 243 mg/dL 90-386 [facility] Work Phone: Serum or plasma IgG measurem ent (mass/volume)on 03-06-2022 IgG [Mass/Vol] 1064 mg/dL 671-1456 [facility] Work Phone: Serum or plasma IgM measurem ent (mass/volume)on 03-06-2022 IgM [Mass/Vol] 144 mg/dL 35-168 [facility] Work Phone: Comment on above: Performed at: [employer] [address] [id number] Director: Demarco See PhD, Phone: [phone] at: [facility] [employer] [id number] Director: Jon Good MD, Phone: [phone] Serum or plasma actin IgG an tibody assay (units/volume)on 03-06-2022 Actin IgG Qn 18 Units 0-19 [facility] Work Phone: Comment on above: Negative 0 - 19 Weak positive 20 - 30 Moderate to strong positive >30 Actin Antibodies are found in 52-85% of patients with autoimmune hepatitis or chronic active hepatitis and in 22% of patients with primary biliary cirrhosis. Serum or plasma albumin gerri urement (mass/volume)on 03-06-2022 Albumin [Mass/Vol] 4.8 g/dL 3.2-5.0 [facility] Work Phone: [phone] Serum or plasma albumin/glob ulin mass ratioon 03-06-2022 Albumin/Globulin [Mass ratio] 1.3 {ratio} 0.9-2.4 [facility] Work Phone: Serum or plasma calcium gerri urement (mass/volume)on 03-06-2022 Calcium [Mass/Vol] 9.3 mg/dL 8.5-10.1 [facility] Work Phone: [phone] Serum or plasma creatinine m easurement (mass/volume)on 03-06-2022 Creatinine [Mass/Vol] 0.95 mg/dL 0.70-1.30 [facility] Work Phone: Comment on above: The validity of the calculated GFR & GFRAA in patients over 70 years has not been determined. Clinical correlation is essential. Serum or plasma ferritin alexander surement (mass/volume)on 03-06-2022 Ferritin [Mass/Vol] 189 ng/mL 26-388 [facility] Work Phone: [phone] Serum or plasma hepatitis B virus surface antigen detection by immunoassayon 03-06-2022 HBV surface Ag IA Ql Negative Negative [facility] Work Phone: Serum or plasma urea nitroge n measurement (mass/volume)on 03-06-2022 Urea nitrogen [Mass/Vol] 15 mg/dL 7-18 [facility] Work Phone: [phone] Serum perinuclear neutrophil cytoplasmic antibody titer by immunofluorescenceon 03-06-2022 Neutrophil cytoplasmic Ab.perinuclear IF (S) [Titer] <1:20 titer Neg:<1:20 [facility] Work Phone: Comment on above: The presence of posi tive fluorescence exhibiting P-ANCA orC-ANCA patterns alone is not specific for the diagnosis ofWegener's Granulomatosis (WG) or microscopic polyangiitis.Decisions about treatment should not be based solely onANCA IFA results. The [employer] ANCA Group Consensusrecommends follow up testing of positive sera with both DE-3 and MPO-ANCA enzyme immunoassays. As many as 5% serumsamples are positive only by EIA. Ref. AM J Clin Bogsro2601;111:507-513. Serum tissue transglutaminas e IgA antibody assay (units/volume)on 03-06-2022 tTG IgA Qn (S) <2 U/mL 0-3 [facility] Work Phone: Comment on above: Negative 0 - 3 Weak Positive 4 - 10 Positive >10 Tissue Transglutaminase (tTG) has been identified as the endomysial antigen. Studies have demonstr- ated that endomysial IgA antibodies have over 99% specificity for gluten sensitive enteropathy. Thin prep Papanicolaou smear with manual screeningon 03-06-2022 Thin prep Papanicolaou smear with manual screening 16 U/L 15-37 [facility] Work Phone: Thin prep Papanicolaou smear with manual screening 8 5-15 [facility] Work Phone: Thin prep Papanicolaou smear with manual screening 129 U/L 87-241 [facility] Work Phone: Thin prep Papanicolaou smear with manual screening 74 ug/dL 63-121 [facility] Work Phone: Comment on above: Detection Limit = 5 Absolute lymphocyte counton 02-27-2022 Lymphocytes Auto (Unsp spec) [#/Vol] 1.22 10*3/uL 0.83-4.51 [facility] Work Phone: Basophil percentageon 2021 Basophils/100 WBC (Bld) 0.4 % 0-1 [facility] Work Phone: Chloride [Moles/Vol] 108 mmol/L 98-107 [facility]: Eosinophils/100 WBC (Bld) 1.2 % 0-5 [facility] Work Phone: Glucose [Mass/Vol] 104 mg/dL 74-106 [facility] Work Phone: Comment on above: Fasting Glucose resu lt from 100 to 125 mg/dL suggests IMPAIRED HOMEOSTASIS per A.D.A. criteria. Neutrophils (Bld) [#/Vol] 3.3 10*3/uL 2.0-7.7 [facility] Work Phone: Neutrophils/100 WBC (Bld) 65.0 % 47-70 [facility] Work Phone: [phone] Potassium [Moles/Vol] 3.6 mmol/L 3.5-5.1 [facility]: [phone] Sodium [Moles/Vol] 140 mmol/L 136-145 [facility] Work Phone: [phone] WBC (Bld) [#/Vol] 5.1 10*3/uL 4.4-11.0 [facility] Work Phone: [phone] Blood erythrocytes count (nu mber/volume)on 02-27-2022 RBC (Bld) [#/Vol] 5.48 10*6/uL 4.6-6.2 [facility]: Blood hemoglobin measurement (mass/volume)on 02-27-2022 Hemoglobin (Bld) [Mass/Vol] 16.5 g/dL 13.0-16.5 [facility] Work Phone: Blood lymphocytes/100 leukoc yteson 02-27-2022 Lymphocytes/100 WBC (Bld) 24.1 % 19-41 [facility] Work Phone: [phone] Blood monocytes/100 leukocyt eson 02-27-2022 Monocytes/100 WBC (Bld) 9.1 % 0-10 [facility] Work Phone: [phone] Blood platelet mean volumeon 02-27-2022 Platelet mean volume (Bld) [Entitic vol] 9.6 fL 6.2-12.0 [facility] Work Phone: [phone] Determination of erythrocyte mean corpuscular volume (MCV)on 02-27-2022 MCV (RBC) [Entitic vol] 87.2 fL 80-94 [facility] Work Phone: Hematocrit Auto (Bld) [Volum e fraction]on 02-27-2022 Hematocrit (Bld) [Volume fraction] 47.8 % 40-54 [facility] Work Phone: [phone] Laboratory - Chemistry and C hemistry - challengeon 02-27-2022 CO2 [Moles/Vol] 27.0 mmol/L 21.0-32.0 [facility] Work Phone: [phone] Urea nitrogen/Creatinine [Mass ratio] 12.6 mg/mg 10-20 [facility] Work Phone: [phone] Laboratory - Hematology and Cell countson 02-27-2022 Erythrocyte distribution width (RBC) [Entitic vol] 39.4 fL 35.1-43.9 [facility] Work Phone: [phone] Erythrocyte distribution width (RBC) [Ratio] 12.3 % 11.6-14.6 [facility] Work Phone: [phone] Immature granulocytes/100 WBC (Bld) 0.200 % 0.0-0.9 [facility] Work Phone: [phone] Comment on above: IG% - Immature Granu locytes (promyelocytes, myelocytes and metamyelocytes) > 1% indicates that a LEFT SHIFT is Present. MCH (RBC) [Entitic mass] 30.1 pg 27.0-32.0 [facility] Work Phone: [phone] Nucleated RBC/100 WBC (Bld) [Ratio] 0 % 0-5 [facility] Work Phone: [phone] MCHC Auto (RBC) [Mass/Vol]on 02-27-2022 MCHC (RBC) [Mass/Vol] 34.5 g/dL 32-36 [facility] Work Phone: No Panel Informationon 02-27 Estimated Creatinine Clearance Calc 122.86 ml/min [facility] Work Phone: [phone] Estimated GFR (MDRD) Amer 120 mL/min >60 [facility] Work Phone: [phone] Comment on above: GFR Calc Estimated GFR (MDRD) Non-Af Amer 99 mL/min >60 [facility] Work Phone: [phone] Comment on above: Non- GFR Calc Troponin I High Sensitivity < 3 pg/mL 3.0-78.0 [facility] Work Phone: Comment on above: Please Note: New Rosalina t Units and Gender Specific Reference Ranges. For more information see Policy Stat Procedure [place] High Sensitivity Troponin (TNIH) and attachments. Platelets bldon 02-27-2022 Platelets (Bld) [#/Vol] 283 10*3/uL 150-450 [facility] Work Phone: Serum or plasma calcium gerri urement (mass/volume)on 02-27-2022 Calcium [Mass/Vol] 9.8 mg/dL 8.5-10.1 [facility] Work Phone: Serum or plasma creatinine m easurement (mass/volume)on 02-27-2022 Creatinine [Mass/Vol] 1.03 mg/dL 0.70-1.30 [facility] Work Phone: Comment on above: The validity of the calculated GFR & GFRAA in patients over 70 years has not been determined. Clinical correlation is essential. Serum or plasma urea nitroge n measurement (mass/volume)on 02-27-2022 Urea nitrogen [Mass/Vol] 13 mg/dL 7-18 [facility] Work Phone: Thin prep Papanicolaou smear with manual screeningon 02-27-2022 Thin prep Papanicolaou smear with manual screening 5 5-15 [facility] Work Phone: Progress Noteon 05-29-2019 [employer] Interface Message Text Drew Arrieta is here in follow-up for: Urinary Frequency History of Presenting Problem: Here with mom. Doing better. Cathybetrtrae seems to be helping a lot. During school, will be able to go 2 hours before voiding. Will try to go in between classes every 45 minutes, but sometimes does not have to go. Has soccer after school for 90 minutes and will void prior and then go when gets home. No leaking. Still has a little bit of urgency. BM daily, type #4. No side effects from medication. No difficulty with stream. US bladder: Pelvic Ultrasound: PVR: 12cc. Smooth Wall Bladder no significant Stool. 11/21/18: Here with step-father. Things are the same. Started flomax about two days ago and has not noticed any difference. Voiding 20 times a day. Some days are better than others. Not on a schedule at the moment. Did schedule, but relaxed on it lately. No dysuria or hematuria. BM daily, soft. Not having any abdominal or flank pain. Tried sanctura and detrol with no relief in symptoms. Did not notice any changes at all. 10/10/18: Here with mom. Symptoms are same. Frequency: Yes. Urgency: 10 minutes or less. Dysuria: No. Straining/pushing: No. Voids: doing schedule again (was off for a while). BM daily (bristol type 5, using metamucil intermittently). Recurrent flank/abdominal pain: No. UTIs since last seen: No. Unexplained fevers: No. Hematuria: No. Wetting: No. Has a small amount of urine (post-void leak). Mom brought MRI report (and images on CD)- [place] 06/09/18- mild spinal stenosis L4-5 greater on left due to bulging disc and facet arthropathy. UDS 10/10/18: normal 08/22/18: Here with dad. History of frequency. Did four sessions of biofeedback. Thinks that biofeedback has helped a little. Can tell that he is using the muscles better. Thinks that frequency maybe has gotten a little better, but still not good. Voiding on a schedule every two hours and then voiding 2-3 times in between. Can also go four times in between the two hour kendall at times. No dysuria or hematuria. No leaking. BM daily. Felipe seen within four hours recently. Has hip issues as well as back pain and unsure if they are related to his frequency. Frequency maybe started around hip injury in May. Saw Ortho in [place] about back, who were worried more about SI joint. They didn't think it was bad enough to do surgery. Has had back pain for several seasons. Hip pain was around time of urinary issues. Wondering if could be mental, seems to be more when stressed. BFB x 4 07/22/18: Here with dad. About the same since last seen. Schedule: even hours. Additional voids vary: 5-6 on average. No UTIs, unexplained fevers, or hematuria. No accidents. No straining. Daily BM (on metamucil). Type 4-5 daily. Avoiding irritants. Off ditropan. No help with pyridium. 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 Good stream with hydrated. Not having to push. UA neg. Uroflow: delayed relaxation, intermittent stream, EMG with void. P: BFB 06/22/18: Here with mom. Referred by PCP for frequency. Frequency for the last few weeks. Has had back/hip pain for years. Toilet trained at 1. Wet days: 0/7. Wet nights 0/7. Voids: prior 8-10x summer (drinks a lot), currently: varies is laying down or sitting (12-16 if not doing anything, had one day of 60 times). Less if distracted. Urgency: Yes. Urge incontinence: No. Tried: ditropan (no help at 5, not sure about 10), nothing else. BM most days (bristol type 4>3). UTIs: No. Unexplained fevers: No. Hematuria: No. Born at 36 weeks with normal US. No trauma. 06/20/18 PCP doubled ditropan to 10mg due to no improvement. Seen by PCP 06/10 in follow up after ER visit for hip pain, back pain, and frequency. 7-8x/hr day prior (small volumes), 6-7x that day. Ferquencyissues for months. Daily BM. 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 L5 hairline. UA neg. Cr 0.9. PCP started ditropan XL (5mg). PE: circ, nl testes. Small PVR. Past Medical History: Past Medical History: Diagnosis Date Acne Uncomplicated asthma Urinary frequency History reviewed. No pertinent surgical history. Allergies: No Known Allergies Medications: Outpatient Encounter Medications as of 05/29/2019 Medication Sig Dispense Refill ISOtretinoin (ABSORICA PO) Take by mouth 2 times daily Mirabegron ER (MYRBETRIQ) 25 MG TB24 Take 25 mg by mouth daily 90 Tab 3 [DISCONTINUED] Mirabegron ER (MYRBETRIQ) 25 MG TB24 Take 25 mg by mouth daily 90 Tab 0 Psyllium (METAMUCIL FIBER PO) Take by mouth [DISCONTINUED] tamsulosin (FLOMAX) 0.4 MG capusle Take 1 Cap (0.4 mg) by mouth At bedtime (Patient not taking: Reported on 05/29/2019) 30 Cap 1 [DISCONTINUED] UNABLE TO FIND Acne Med not sure of name No facility-administered encounter medications on file as of 05/29/2019. Family Medical History: Family History Problem Relation Age of Onset Hypertension Mother No known problems Father Diabetes Paternal Grandfather Prostate Cancer Paternal Grandfather Social History: Social History Socioeconomic History Marital status: Single Spouse name: Not on file Number of children: Not on file Years of education: Not on file Highest education level: Not on file Occupational History Not on file Social Needs Financial resource strain: Not on file Food insecurity: Worry: Not on file Inability: Not on file Transportation needs: Medical: Not on file Non-medical: Not on file Tobacco Use Smoking status: Never Smoker Smokeless tobacco: Never Used Substance and Sexual Activity Alcohol use: Not on file Drug use: Not on file Sexual activity: Not on file Lifestyle Physical activity: Days per week: Not on file Minutes per session: Not on file Stress: Not on file Relationships Social connections: Talks on phone: Not on file Gets together: Not on file Attends taoism service: Not on file Active member of club or organization: Not on file Attends meetings of clubs or organizations: Not on file Relationship status: Not on file Intimate partner violence: Fear of current or ex partner: Not on file Emotionally abused: Not on file Physically abused: Not on file Forced sexual activity: Not on file Other Topics Concern Not on file Social History Narrative Not on file Additional History Is the patient on a special diet? No Age at toilet training? 1 yrs Per parents, immunizations are up to date. Yes Patient lives with? Mother step dad Factors which may affect learning None Review of Systems: Constitutional: negative Eyes: negative Ears, nose, mouth, throat, and face: negative Respiratory: negative Cardiovascular: negative Gastrointestinal: negative Integument/breast: negative Hematologic/lymphatic: negative Musculoskeletal:negati ve Allergic/Immunologic: negative Physical Examination: Vitals: 05/29/19 0941 BP: 110/54 BP Site: Left Arm Patient Position: Sitting BP Cuff Size: Adult Weight: 76.1 kg Height: 181 cm General: Well appearing, no acute distress Eyes: No exudates, conjunctiva normal HENT: Normocephalic, no nasal discharge Resp: Normal effort Lymphatic: No palpable lymph nodes (neck) Abdomen: Non-tender, non-distended, soft Neurologic: Grossly normal sensation Musculoskeletal: Normal ROM Skin: Warm and dry : Circumcised with normal meatus. Testes down (normal). Laboratory Testing: No results found for this visit on 05/29/19. Imaging: See HPI (and scanned images in media) Assessment & Plan: Drew was seen today for urinary frequency. Diagnoses and all orders for this visit: Urinary frequency - Mirabegron ER (MYRBETRIQ) 25 MG TB24; Take 25 mg by mouth daily - Pelvic Ultrasound wo/doppler Dysfunctional voiding of urine Slow transit constipation It is fortunate that Drew has experienced improvement in symptoms with the mybetriq and has not had any side effects. I encouraged him to maintain a set voiding schedule. We discussed a drug holiday next summer. I will see him back in February. They will call for any issues in the interim. All questions were answered. Karlie Tate, DIANA-LAYBOY TENDER May 29, 2019 I have personally shared in the visit of Drew Arrieta, providing bedside participation in the E&M. I saw and evaluated the patient and discussed the plan with the resident/REGISTERED PHARMACY TECHNICIAN. I added additional physical exam and history, which are in bold, and confirmed other pertinent data. I performed all of the medical decision making and developed the plan with the family. Connor Roberts MD [facility] Progress Noteon 11-21-2018 [employer] Interface Message Text Drew Arrieta is here in follow-up for: Urinary Frequency History of Presenting Problem: Here with step-father. Things are the same. Started flomax about two days ago and has not noticed any difference. Voiding 20 times a day. Some days are better than others. Not on a schedule at the moment. Did schedule, but relaxed on it lately. No dysuria or hematuria. BM daily, soft. Not having any abdominal or flank pain. Tried sanctura and detrol with no relief in symptoms. Did not notice any changes at all. Past Medical History: Past Medical History: Diagnosis Date Acne Uncomplicated asthma Urinary frequency History reviewed. No pertinent surgical history. Allergies: No Known Allergies Medications: Outpatient Encounter Medications as of 11/21/2018 Medication Sig Dispense Refill tamsulosin (FLOMAX) 0.4 MG capusle Take 1 Cap (0.4 mg) by mouth At bedtime 30 Cap 1 UNABLE TO FIND Acne Med not sure of name Psyllium (METAMUCIL FIBER PO) Take by mouth Mirabegron ER (MYRBETRIQ) 25 MG TB24 Take 25 mg by mouth daily 30 Tab 2 [DISCONTINUED] tolterodine (DETROL LA) 4 MG ER capsule Take 1 Cap (4 mg) by mouth daily 30 Cap 1 [DISCONTINUED] sulfamethoxazole-trime thoprim (BACTRIM, SEPTRA) 400-80 MG tablet Take by mouth every 12 hours Indications: Taking for UDS testing [DISCONTINUED] Trospium Chloride 60 MG CP24 Take 1 Cap (60 mg) by mouth daily 30 Each 0 [DISCONTINUED] polyethylene glycol (GLYCOLAX) powder Take 17 g by mouth 2 times daily 527 g 0 No facility-administered encounter medications on file as of 11/21/2018. Family Medical History: Family History Problem Relation Age of Onset Hypertension Mother No known problems Father Diabetes Paternal Grandfather Prostate Cancer Paternal Grandfather Social History: Social History Socioeconomic History Marital status: Single Spouse name: Not on file Number of children: Not on file Years of education: Not on file Highest education level: Not on file Social Needs Financial resource strain: Not on file Food insecurity - worry: Not on file Food insecurity - inability: Not on file Transportation needs - medical: Not on file Transportation needs - non-medical: Not on file Occupational History Not on file Tobacco Use Smoking status: Never Smoker Smokeless tobacco: Never Used Substance and Sexual Activity Alcohol use: Not on file Drug use: Not on file Sexual activity: Not on file Other Topics Concern Not on file Social History Narrative Not on file Additional History Is the patient on a special diet? No Age at toilet training? 1 yrs Per parents, immunizations are up to date. Yes Patient lives with? Mother step dad Factors which may affect learning None Review of Systems: Constitutional: negative Eyes: negative Ears, nose, mouth, throat, and face: negative Respiratory: negative Cardiovascular: negative Gastrointestinal: negative Integument/breast: negative Hematologic/lymphatic: negative Musculoskeletal:negati ve Allergic/Immunologic: negative Physical Examination: Vitals: 11/21/18 1003 Weight: 74.8 kg Height: 179.5 cm General: Well appearing, no acute distress Eyes: No exudates, conjunctiva normal HENT: Normocephalic, no nasal discharge Resp: Normal effort Lymphatic: No palpable lymph nodes (neck) Abdomen: Non-tender, non-distended, soft Neurologic: Grossly normal sensation Musculoskeletal: Normal ROM, no CVAT Skin: Warm and dry : Deferred Laboratory Testing: No results found for this visit on 11/21/18. Imaging: See HPI for brief read (+ media for scanned report/images). Assessment & Plan: Drew was seen today for urinary frequency. Diagnoses and all orders for this visit: Urinary frequency - Mirabegron ER (MYRBETRIQ) 25 MG TB24; Take 25 mg by mouth daily Dysfunctional voiding of urine I asked them to continue the flomax for a total trial of at least 14 days. If it is not helping, they will then start mybetriq since he has failed multiple anticholinergics. If the mybetriq is not helping, then we will proceed with peripheral sacral nerve stimulation before considering surgical inteventions. All questions were answered. They will call with an update (if the flomax starts helping or once he's on myrbetriq). Karlie Tate, EXHIBIT ELECTRICIAN-LAYBOY TENDER November 21, 2018 I have personally shared in the visit of Drew Arrieta, providing bedside participation in the E&M. I saw and evaluated the patient and discussed the plan with the resident/REGISTERED PHARMACY TECHNICIAN. I added additional physical exam and history, which are in bold, and confirmed other pertinent data. I performed all of the medical decision making and developed the plan with the family. Connor Roberts MD Counseling and/or coordination of care was greater than 21 minutes, which is more than 50% of the total time of >25 minutes spent on the encounter. Normal [facility] VOIDING CYSTOURETHROGRAMo n 10-10-2018 [place] VOIDING CYSTOURETHROGRAM CLINICAL HISTORY: frequency, dys void TECHNIQUE: Low-dose fluoroscopy (3 frames/sec) was used to perform a voiding cystourethrogram. Fluoroscopy time: 1.2 minutes Estimated Dose area product: 535.57 uGy-m2. Contrast: 470 mL Cystografin administered per bladder catheter. COMPARISON: None FINDINGS: Limited top lift nailer image shows bowel gas present in a nonobstructing pattern. BLADDER: The bladder was filled one time with contrast to the point of spontaneous voiding. The urinary bladder . RIGHT: No vesicoureteral reflux LEFT: No vesicoureteral reflux VOIDING/URETHRA: Voiding demonstrates a normal urethra. There is minimal post void residual. IMPRESSION: Normal VCUG with no evidence of vesicoureteral reflux. This report has been created using voice recognition software Signed by: Dr. Thiago Jama at 10/10/2018 16:25 Normal [facility] Progress Noteon 10-10-2018 Coater Authentication Interface Message Text Drew Arrieta is here in follow-up for: Urinary Frequency History of Presenting Problem: Here with mom. Symptoms are same. Frequency: Yes. Urgency: 10 minutes or less. Dysuria: No. Straining/pushing: No. Voids: doing schedule again (was off for a while). BM daily (bristol type 5, using metamucil intermittently). Recurrent flank/abdominal pain: No. UTIs since last seen: No. Unexplained fevers: No. Hematuria: No. Wetting: No. Has a small amount of urine (post-void leak). Mom brought MRI report (and images on CD)- [facility] 06/09/18- mild spinal stenosis L4-5 greater on left due to bulging disc and facet arthropathy UDS today: normal Past Medical History: Past Medical History: Diagnosis Date Uncomplicated asthma Urinary frequency History reviewed. No pertinent surgical history. Allergies: No Known Allergies Medications: Outpatient Encounter Medications as of 10/10/2018 Medication Sig Dispense Refill sulfamethoxazole-trime thoprim (BACTRIM, SEPTRA) 400-80 MG tablet Take by mouth every 12 hours Indications: Taking for UDS testing polyethylene glycol (GLYCOLAX) powder Take 17 g by mouth 2 times daily 527 g 0 UNABLE TO FIND Acne Med not sure of name Psyllium (METAMUCIL FIBER PO) Take by mouth Trospium Chloride 60 MG CP24 Take 1 Cap (60 mg) by mouth daily 30 Each 0 No facility-administered encounter medications on file as of 10/10/2018. Family Medical History: Family History Problem Relation Age of Onset Hypertension Mother No known problems Father Diabetes Paternal Grandfather Prostate Cancer Paternal Grandfather Social History: Social History Socioeconomic History Marital status: Single Spouse name: Not on file Number of children: Not on file Years of education: Not on file Highest education level: Not on file Social Needs Financial resource strain: Not on file Food insecurity - worry: Not on file Food insecurity - inability: Not on file Transportation needs - medical: Not on file Transportation needs - non-medical: Not on file Occupational History Not on file Tobacco Use Smoking status: Never Smoker Smokeless tobacco: Never Used Substance and Sexual Activity Alcohol use: Not on file Drug use: Not on file Sexual activity: Not on file Other Topics Concern Not on file Social History Narrative Not on file Additional History Is the patient on a special diet? No Age at toilet training? 1 yrs Per parents, immunizations are up to date. Yes Patient lives with? Mother step dad Factors which may affect learning None Review of Systems: Constitutional: negative Eyes: negative Ears, nose, mouth, throat, and face: negative Respiratory: negative Cardiovascular: negative Gastrointestinal: negative Integument/breast: negative Physical Examination: Vitals: 10/10/18 1531 Weight: 74.3 kg General: Well appearing, no acute distress Eyes: No exudates, conjunctiva normal HENT: Normocephalic, no nasal discharge Resp: Normal effort Lymphatic: No palpable lymph nodes (neck) Abdomen: Non-tender, non-distended, soft Neurologic: Grossly normal sensation Musculoskeletal: Normal ROM Skin: Warm and dry : Deferred Laboratory Testing: No results found for this visit on 10/10/18. Imaging: VCUG: no VUR, normal urethra, small PVR. Assessment & Plan: Drew was seen today for urinary frequency. Diagnoses and all orders for this visit: Urinary frequency - Trospium Chloride 60 MG CP24; Take 1 Cap (60 mg) by mouth daily Dysfunctional voiding of urine Slow transit constipation I reviewed the VCUG and urodynamics images with Drew, his mother (and dad via phone). With no abnormality noted on either test, we moved on to discussing options going forward. We discussed trying additional anti-cholinergics, flomax, mybetriq, peripheral sacral nerve stimulation, tibial nerve stimulation, botox injection, and Interstim. I recommended we try medications first and I prescribed sanctura today. They will call with an update in 2 weeks. All questions were answered. Connor Roberts MD October 10, 2018 Counseling and/or coordination of care was greater than 28 minutes, which is more than 50% of the total time of 35 minutes spent on the encounter. Normal [facility] Progress Noteon 08-22-2018 Coater Authentication Interface Message Text Drew Arrieta is here in follow-up for: Urologic Problem (Frequency) History of Presenting Problem: Here with dad. History of frequency. Did four sessions of biofeedback. Thinks that biofeedback has helped a little. Can tell that he is using the muscles better. Thinks that frequency maybe has gotten a little better, but still not good. Voiding on a schedule every two hours and then voiding 2-3 times in between. Can also go four times in between the two hour kendall at times. No dysuria or hematuria. No leaking. BM daily. [place] seen within four hours recently. Has hip issues as well as back pain and unsure if they are related to his frequency. Frequency maybe started around hip injury in May. Saw Ortho in [place] about back, who were worried more about SI joint. They didn't think it was bad enough to do surgery. Has had back pain for several seasons. Hip pain was around time of urinary issues. Wondering if could be mental, seems to be more when stressed. Past Medical History: Past Medical History: Diagnosis Date Uncomplicated asthma Urinary frequency History reviewed. No pertinent surgical history. Allergies: No Known Allergies Medications: Outpatient Encounter Medications as of 08/22/2018 Medication Sig Dispense Refill UNABLE TO FIND Acne Med not sure of name Psyllium (METAMUCIL FIBER PO) Take by mouth No facility-administered encounter medications on file as of 08/22/2018. Family Medical History: Family History Problem Relation Age of Onset Hypertension Mother No known problems Father Diabetes Paternal Grandfather Prostate Cancer Paternal Grandfather Social History: Social History Socioeconomic History Marital status: Single Spouse name: Not on file Number of children: Not on file Years of education: Not on file Highest education level: Not on file Social Needs Financial resource strain: Not on file Food insecurity - worry: Not on file Food insecurity - inability: Not on file Transportation needs - medical: Not on file Transportation needs - non-medical: Not on file Occupational History Not on file Tobacco Use Smoking status: Never Smoker Smokeless tobacco: Never Used Substance and Sexual Activity Alcohol use: Not on file Drug use: Not on file Sexual activity: Not on file Other Topics Concern Not on file Social History Narrative Not on file Additional History Is the patient on a special diet? No Age at toilet training? 1 yrs Per parents, immunizations are up to date. Yes Patient lives with? Mother step dad Factors which may affect learning None Review of Systems: Constitutional: negative Eyes: negative Ears, nose, mouth, throat, and face: negative Respiratory: negative Cardiovascular: negative Gastrointestinal: negative Integument/breast: negative Hematologic/lymphatic: negative Musculoskeletal:negati ve Allergic/Immunologic: negative Physical Examination: Vitals: 08/22/18 1401 Weight: 73.3 kg General: Well appearing, no acute distress Eyes: No exudates, conjunctiva normal HENT: Normocephalic, no nasal discharge Resp: Normal effort Lymphatic: No palpable lymph nodes (neck) Abdomen: Non-tender, non-distended, soft Neurologic: Grossly normal sensation Musculoskeletal: Normal ROM Skin: Warm and dry : Deferred Laboratory Testing: No results found for this visit on 08/22/18. Imaging: None today Assessment & Plan: Drew was seen today for urologic problem. Diagnoses and all orders for this visit: Urinary frequency Dysfunctional voiding of urine Slow transit constipation Since the frequency is not improving with th biofeedback, we discussed our options. We reviewed the option of continuing biofeedback, of trying other anti-cholinergics, and of proceeding with urodynamics/VCUG. I described how the testing could be performed and reviewed what information we would get. I asked dad to sign a record release so we can get the note from when he was seen by Ortho and we discussed the option of getting further opinions whether his back/spine issues could be contributing. I also asked him to decrease his protein supplementation in case that is contributing. We are making a tentative appointment in 3 months, but they will call if they elect for testing, etc. All questions were answered. Karlie Tate CNP August 22, 2018 I have personally shared in the visit of Drew Alegriaves, providing bedside participation in the E&M. I saw and evaluated the patient and discussed the plan with the resident/REGISTERED PHARMACY TECHNICIAN. I added additional physical exam and history, which are in bold, and confirmed other pertinent data. I performed all of the medical decision making and developed the plan with the family. Connor Roberts MD Counseling and/or coordination of care was greater than 24 minutes, which is more than 50% of the total time of 30 minutes spent on the encounter. Normal [facility] Progress Noteon 07-22-2018 Coater Authentication Interface Message Text Drew Arrieta is here in follow-up for: Urinary Frequency History of Presenting Problem: Here with dad. About the same since last seen. Schedule: even hours. Additional voids vary: 5-6 on average. No UTIs, unexplained fevers, or hematuria. No accidents. No straining. Daily BM (on metamucil). Type 4-5 daily. Avoiding irritants. Off ditropan. No help with pyridium. 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 Good stream with hydrated. Not having to push. Past Medical History: History reviewed. No pertinent past medical history. History reviewed. No pertinent surgical history. Allergies: No Known Allergies Medications: Outpatient Encounter Medications as of 07/22/2018 Medication Sig Dispense Refill [DISCONTINUED] phenazopyridine (PYRIDIUM) 100 MG tablet Take 1 Tab (100 mg) by mouth 3 times daily as needed for Other (frequency) 60 Tab 1 [DISCONTINUED] oxybutynin (DITROPAN-XL) 5 MG TB24 CR tablet Take 10 mg by mouth daily No facility-administered encounter medications on file as of 07/22/2018. Family Medical History: Family History Problem Relation Age of Onset Hypertension Mother No known problems Father Social History: Social History Socioeconomic History Marital status: Single Spouse name: Not on file Number of children: Not on file Years of education: Not on file Highest education level: Not on file Social Needs Financial resource strain: Not on file Food insecurity - worry: Not on file Food insecurity - inability: Not on file Transportation needs - medical: Not on file Transportation needs - non-medical: Not on file Occupational History Not on file Tobacco Use Smoking status: Never Smoker Smokeless tobacco: Never Used Substance and Sexual Activity Alcohol use: Not on file Drug use: Not on file Sexual activity: Not on file Other Topics Concern Not on file Social History Narrative Not on file Additional History Is the patient on a special diet? No Age at toilet training? 1yrs Per parents, immunizations are up to date. Yes Patient lives with? Mother step dad Factors which may affect learning None Review of Systems: Constitutional: negative Eyes: negative Ears, nose, mouth, throat, and face: negative Respiratory: negative Cardiovascular: negative Gastrointestinal: negative Integument/breast: negative Physical Examination: Vitals: 07/22/18 1014 Weight: 71.8 kg General: Well appearing, no acute distress Eyes: No exudates, conjunctiva normal HENT: Normocephalic, no nasal discharge Resp: Normal effort Lymphatic: No palpable lymph nodes (neck) Abdomen: Non-tender, non-distended, soft Neurologic: Grossly normal sensation Musculoskeletal: Normal ROM Skin: Warm and dry : Deferred Laboratory Testing: Results for orders placed or performed in visit on 07/22/18 POCT urinalysis dipstick Result Value Ref Range POCT, Leukocytes, Urine Negative Negative POCT Nitrite, Urine Negative Negative POCT Protein, Urine Negative Negative - Trace mg/dl POCT Urine pH 5.0 - 7.5 pH POCT Blood, Urine Negative Negative POCT Urine Specific [place] 1.020 1.000 - 1.035 POCT Ketones, Urine Negative Negative mg/dl POCT Glucose, Urine Negative Negative mg/dl Imaging: Uroflow: delayed relaxation, intermittent stream, EMG with void. Assessment & Plan: Drew was seen today for urinary frequency. Diagnoses and all orders for this visit: Urinary frequency - Biofeedback Dysfunctional voiding of urine Slow transit constipation Symptoms involving urinary system - POCT urinalysis dipstick I asked Drew to keep up with his improved habits. We reviewed options including observation with a recheck in 2 months, biofeedback, and proceeding with testing (urdynamics/VCUG). We have elected for biofeedback. I will see him after the 4th session. If it does not seem to be helping, then we will proceed with testing as they are hoping to get him back to his school next semester. All questions were answered. Connor Roberts MD July 22, 2018 Normal [facility] Progress Noteon 06-22-2018 Coater Authentication Interface Message Text Drew Arrieta is here in consultation at the request of Lenny Kaufman MD for: Urinary Frequency History of Presenting Problem: Here with mom. Referred by PCP for frequency. Frequency for the last few weeks. Has had back/hip pain for years. Toilet trained at 1. Wet days: 0/7. Wet nights 0/7. Voids: prior 8-10x summer (drinks a lot), currently: varies is laying down or sitting (12-16 if not doing anything, had one day of 60 times). Less if distracted. Urgency: Yes. Urge incontinence: No. Tried: ditropan (no help at 5, not sure about 10), nothing else. BM most days (bristol type 4>3). UTIs: No. Unexplained fevers: No. Hematuria: No. Born at 36 weeks with normal US. No trauma. 06/20/18 PCP doubled ditropan to 10mg due to no improvement. Seen by PCP 06/10 in follow up after ER visit for hip pain, back pain, and frequency. 7-8x/hr day prior (small volumes), 6-7x that day. Ferquency issues for months. Daily BM. 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 L5 hairline. UA neg. Cr 0.9. PCP started ditropan XL (5mg). Past Medical History: History reviewed. No pertinent past medical history. History reviewed. No pertinent surgical history. Allergies: No Known Allergies Medications: Outpatient Encounter Prescriptions as of 06/22/2018 Medication Sig Dispense Refill oxybutynin (DITROPAN-XL) 5 MG TB24 CR tablet Take 10 mg by mouth daily [DISCONTINUED] Chlorothiazide (DIURIL PO) Take by mouth phenazopyridine (PYRIDIUM) 100 MG tablet Take 1 Tab (100 mg) by mouth 3 times daily as needed for Other (frequency) 60 Tab 1 No facility-administered encounter medications on file as of 06/22/2018. Family Medical History: Family History Problem Relation Age of Onset Hypertension Mother Social History: Social History Social History Marital status: Single Spouse name: N/A Number of children: N/A Years of education: N/A Occupational History Not on file. Social History Main Topics Smoking status: Never Smoker Smokeless tobacco: Never Used Alcohol use Not on file Drug use: Unknown Sexual activity: Not on file Other Topics Concern Not on file Social History Narrative No narrative on file Additional History Is the patient on a special diet? No Age at toilet training? 1 Per parents, immunizations are up to date. Yes Patient lives with? Mother Review of Systems: Constitutional: negative Eyes: negative Ears, nose, mouth, throat, and face: negative Respiratory: negative Cardiovascular: negative Gastrointestinal: negative Integument/breast: negative Hematologic/lymphatic: negative Musculoskeletal:seeing Ortho for back/SI, getting PT. Neurological: negative Behavioral/Psych: negative Endocrine: negative Physical Examination: Vitals: 06/22/18 1355 Weight: 68.3 kg General: Well appearing, no acute distress Eyes: No exudates, conjunctiva normal HENT: Normocephalic, no nasal discharge, braces Resp: Normal effort, CTA B CV: RRR, no murmur appreciated Lymphatic: No palpable lymph nodes (neck) Abdomen: Non-tender, non-distended, soft Neurologic: Grossly normal sensation Musculoskeletal: Normal ROM Skin: Warm and dry. : Circumcised. Normal meatus. Testes down (normal). Laboratory Testing: No results found for this visit on 06/22/18. Imaging: Bladder: normal wall with small PVR. Rectal diameter was unremarkable. Viewed pelvis otherwise unremarkable.. Assessment & Plan: Drew was seen today for urinary frequency. Diagnoses and all orders for this visit: Urinary frequency - Pelvic Ultrasound wo/doppler - phenazopyridine (PYRIDIUM) 100 MG tablet; Take 1 Tab (100 mg) by mouth 3 times daily as needed for Other (frequency) Dysfunctional voiding of urine Slow transit constipation I explained how holding one's urine and constipation can contribute to frequency. We discussed the bladder being irritated, but also reviewed the possibility of other issues (stricture, etc), which are uncommon. We discussed the testing needed to diagnose such issues. We discussed continuing the ditropan at the higher dose to see if it will help, but also a trial of pyridium. I recommended a timed voiding schedule, including at least 8 scheduled times per day (preferably the same times each day). At those times, the patient should try to void whether feeling the need or not. We discussed good toileting technique, including positioning, and the importance of relaxing with voids (rather than trying to push the urine out). We discussed double voiding to ensure emptying. We discussed eliminating all possible bladder irritants (including protein bars, tea, etc). We discussed how constipation can contribute to urinary issues. I recommended a soft ([place] type 4-5) bowel movement daily. I asked them to record a diary of his bowel movements along with a corn test. We discussed dietary and behavioral modifications to help with constipation, including moderation with meat, cheese, bananas, and peanut butter. We discussed the addition of fiber to the diet. I will plan to see him back in 1 month. If things get worse or are not improving, they will call with an update and we would switch his follow up visit to the [place] office (so that we can perform a uroflow/EMG at that visit). All questions were answered. Connor Roberts MD June 22, 2018 Normal [facility] Vital Signs Date Time Vital Sign Value Performing Clinician Supriya yancey 03-13-2022 10:09-0400 Body height 180.34 cm REGISTERED PHARMACY TECHNICIAN-C Kendall Mcbride REGISTERED PHARMACY TECHNICIAN Work Phone: [facility] Work Phone: 03-13-2022 10:09-0400 Body mass index (BMI) [Percentile] Per age and sex 65.6 % REGISTERED PHARMACY TECHNICIAN-C Kendall Mcbride REGISTERED PHARMACY TECHNICIAN Work Phone: [facility] Work Phone: 03-13-2022 10:09-0400 Body mass index (BMI) [Ratio] 23.8 kg/m2 REGISTERED PHARMACY TECHNICIAN-C Kendall Mcbride REGISTERED PHARMACY TECHNICIAN Work Phone: [facility] Work Phone: 03-13-2022 10:09-0400 Body temperature 97.5 [degF] REGISTERED PHARMACY TECHNICIAN-C Kendall Mcbride REGISTERED PHARMACY TECHNICIAN Work Phone: [facility] Work Phone: 03-13-2022 10:09-0400 Body weight 77.56 kg REGISTERED PHARMACY TECHNICIAN-C Kendall Mcbride REGISTERED PHARMACY TECHNICIAN Work Phone: [facility] Work Phone: 03-13-2022 10:09-0400 Diastolic blood pressure 60 mm[Hg] REGISTERED PHARMACY TECHNICIAN-C Kendall Mcbride REGISTERED PHARMACY TECHNICIAN Work Phone: [facility] Work Phone: 03-13-2022 10:09-0400 Heart rate 55 /min REGISTERED PHARMACY TECHNICIAN-C Kendall Mcbride REGISTERED PHARMACY TECHNICIAN Work Phone: [facility] Work Phone: 03-13-2022 10:09-0400 Respiratory rate 18 /min REGISTERED PHARMACY TECHNICIAN-C Kendall Mcbride REGISTERED PHARMACY TECHNICIAN Work Phone: [facility] Work Phone: 03-13-2022 10:09-0400 SaO2% (BldA) [Mass fraction] 98 % REGISTERED PHARMACY TECHNICIAN-C Kendall Mcbrdie REGISTERED PHARMACY TECHNICIAN Work Phone: [facility] Work Phone: 03-13-2022 10:09-0400 Systolic blood pressure 124 mm[Hg] REGISTERED PHARMACY TECHNICIAN-C Kendall Mcbride REGISTERED PHARMACY TECHNICIAN Work Phone: [facility] Work Phone: 03-08-2022 01:17-0400 Respiratory rate 18 /min REGISTERED PHARMACY TECHNICIAN-C Kendall Mcbride REGISTERED PHARMACY TECHNICIAN Work Phone: [facility] Work Phone: 03-08-2022 00:04-0400 Diastolic blood pressure 61 mm[Hg] REGISTERED PHARMACY TECHNICIAN-C Kendall Mcbride REGISTERED PHARMACY TECHNICIAN Work Phone: [facility] Work Phone: 03-08-2022 00:04-0400 Heart rate 55 /min REGISTERED PHARMACY TECHNICIAN-C Kendall Mcbride REGISTERED PHARMACY TECHNICIAN Work Phone: [facility] Work Phone: 03-08-2022 00:04-0400 SaO2% (BldA) [Mass fraction] 99 % REGISTERED PHARMACY TECHNICIAN-C Kendall Mcbride REGISTERED PHARMACY TECHNICIAN Work Phone: [facility] Work Phone: 03-08-2022 00:04-0400 Systolic blood pressure 125 mm[Hg] REGISTERED PHARMACY TECHNICIAN-C Kendall Mcbride REGISTERED PHARMACY TECHNICIAN Work Phone: [facility] Work Phone: 03-07-2022 22:05-0400 Body mass index (BMI) [Percentile] Per age and sex 78 % REGISTERED PHARMACY TECHNICIAN-C Kendall Mcbride REGISTERED PHARMACY TECHNICIAN Work Phone: [facility] Work Phone: 03-07-2022 22:05-0400 Body mass index (BMI) [Ratio] 25.2 kg/m2 REGISTERED PHARMACY TECHNICIAN-C Kendall Mcbride REGISTERED PHARMACY TECHNICIAN Work Phone: [facility] Work Phone: 03-07-2022 22:05-0400 Body temperature 97.8 [degF] REGISTERED PHARMACY TECHNICIAN-C Kendall Mcbride REGISTERED PHARMACY TECHNICIAN Work Phone: [facility] Work Phone: 03-07-2022 22:05-0400 Body weight 82.02 kg REGISTERED PHARMACY TECHNICIAN-C Kendall Mcbride REGISTERED PHARMACY TECHNICIAN Work Phone: [facility] Work Phone: 03-02-2022 11:31-0400 Body mass index (BMI) [Percentile] Per age and sex 72.5 % REGISTERED PHARMACY TECHNICIAN-C Kendall Mcbride REGISTERED PHARMACY TECHNICIAN Work Phone: [facility] Work Phone: 03-02-2022 11:31-0400 Body mass index (BMI) [Ratio] 24.5 kg/m2 REGISTERED PHARMACY TECHNICIAN-C Kendall Mcbride REGISTERED PHARMACY TECHNICIAN Work Phone: [facility] Work Phone: 03-02-2022 11:31-0400 Body temperature 98.9 [degF] REGISTERED PHARMACY TECHNICIAN-C Kendall Mcbride REGISTERED PHARMACY TECHNICIAN Work Phone: [facility] Work Phone: 03-02-2022 11:31-0400 Body weight 79.88 kg REGISTERED PHARMACY TECHNICIAN-C Kendall Mcbride REGISTERED PHARMACY TECHNICIAN Work Phone: [facility] Work Phone: 03-02-2022 11:31-0400 Diastolic blood pressure 80 mm[Hg] REGISTERED PHARMACY TECHNICIAN-C Kendall Mcbride REGISTERED PHARMACY TECHNICIAN Work Phone: [facility] Work Phone: 03-02-2022 11:31-0400 Heart rate 75 /min REGISTERED PHARMACY TECHNICIAN-C Kendall Mcbride REGISTERED PHARMACY TECHNICIAN Work Phone: [facility] Work Phone: 03-02-2022 11:31-0400 Respiratory rate 18 /min REGISTERED PHARMACY TECHNICIAN-C Kendall Mcbride REGISTERED PHARMACY TECHNICIAN Work Phone: [facility] Work Phone: 03-02-2022 11:31-0400 SaO2% (BldA) [Mass fraction] 98 % REGISTERED PHARMACY TECHNICIAN-C Kendall Mcbride REGISTERED PHARMACY TECHNICIAN Work Phone: [facility] Work Phone: 03-02-2022 11:31-0400 Systolic blood pressure 142 mm[Hg] REGISTERED PHARMACY TECHNICIAN-C Kendall Mcbride REGISTERED PHARMACY TECHNICIAN Work Phone: [facility] Work Phone: 02-28-2022 12:35-0400 Body height 180.34 cm REGISTERED PHARMACY TECHNICIAN-C Kendall Mcbride REGISTERED PHARMACY TECHNICIAN Work Phone: [facility] Work Phone: 02-28-2022 12:35-0400 Body mass index (BMI) [Percentile] Per age and sex 70.8 % REGISTERED PHARMACY TECHNICIAN-C Kendall Mcbride REGISTERED PHARMACY TECHNICIAN Work Phone: [facility] Work Phone: 02-28-2022 12:35-0400 Body mass index (BMI) [Ratio] 24.3 kg/m2 REGISTERED PHARMACY TECHNICIAN-C Kendall Mcbride REGISTERED PHARMACY TECHNICIAN Work Phone: [facility] Work Phone: 02-28-2022 12:35-0400 Body temperature 98.5 [degF] REGISTERED PHARMACY TECHNICIAN-C Kendall Mcbride REGISTERED PHARMACY TECHNICIAN Work Phone: [facility] Work Phone: 02-28-2022 12:35-0400 Body weight 79.1 kg REGISTERED PHARMACY TECHNICIAN-C Kendall Mcbride REGISTERED PHARMACY TECHNICIAN Work Phone: [facility] Work Phone: 02-28-2022 12:35-0400 Diastolic blood pressure 78 mm[Hg] REGISTERED PHARMACY TECHNICIAN-C Kendall Mcbride REGISTERED PHARMACY TECHNICIAN Work Phone: [facility] Work Phone: 02-28-2022 12:35-0400 Heart rate 88 /min REGISTERED PHARMACY TECHNICIAN-C Kendall Mcbride REGISTERED PHARMACY TECHNICIAN Work Phone: [facility] Work Phone: 02-28-2022 12:35-0400 Respiratory rate 16 /min REGISTERED PHARMACY TECHNICIAN-C Kendall Mcbride REGISTERED PHARMACY TECHNICIAN Work Phone: [facility] Work Phone: 02-28-2022 12:35-0400 SaO2% (BldA) [Mass fraction] 99 % REGISTERED PHARMACY TECHNICIAN-C Kendall Mcbride REGISTERED PHARMACY TECHNICIAN Work Phone: [facility] Work Phone: 02-28-2022 12:35-0400 Systolic blood pressure 135 mm[Hg] REGISTERED PHARMACY TECHNICIAN-C Kendall Mcbride REGISTERED PHARMACY TECHNICIAN Work Phone: [facility] Work Phone: 02-27-2022 14:16-0400 Body height 180.34 cm REGISTERED PHARMACY TECHNICIAN-C Kendall Mcbride REGISTERED PHARMACY TECHNICIAN Work Phone: [facility] Work Phone: 02-27-2022 14:16-0400 Body mass index (BMI) [Percentile] Per age and sex 77.4 % REGISTERED PHARMACY TECHNICIAN-C Kendall Mcbride REGISTERED PHARMACY TECHNICIAN Work Phone: [facility] Work Phone: 02-27-2022 14:16-0400 Body mass index (BMI) [Ratio] 25.1 kg/m2 REGISTERED PHARMACY TECHNICIAN-C Kendall Mcbride REGISTERED PHARMACY TECHNICIAN Work Phone: [facility] Work Phone: 02-27-2022 14:16-0400 Body temperature 98.1 [degF] REGISTERED PHARMACY TECHNICIAN-C Kendall Mcbride REGISTERED PHARMACY TECHNICIAN Work Phone: [facility] Work Phone: 02-27-2022 14:16-0400 Body weight 81.64 kg REGISTERED PHARMACY TECHNICIAN-C Kendall Mcbride REGISTERED PHARMACY TECHNICIAN Work Phone: [facility] Work Phone: 02-27-2022 14:16-0400 Diastolic blood pressure 97 mm[Hg] REGISTERED PHARMACY TECHNICIAN-C Kendall Mcbride REGISTERED PHARMACY TECHNICIAN Work Phone: [facility] Work Phone: 02-27-2022 14:16-0400 Heart rate 81 /min REGISTERED PHARMACY TECHNICIAN-C Kendall Mcbride REGISTERED PHARMACY TECHNICIAN Work Phone: [facility] Work Phone: 02-27-2022 14:16-0400 Respiratory rate 18 /min REGISTERED PHARMACY TECHNICIAN-C Kendall Mcbride REGISTERED PHARMACY TECHNICIAN Work Phone: [facility] Work Phone: 02-27-2022 14:16-0400 SaO2% (BldA) [Mass fraction] 100 % REGISTERED PHARMACY TECHNICIAN-C Kendall Mcbride REGISTERED PHARMACY TECHNICIAN Work Phone: [facility] Work Phone: 02-27-2022 14:16-0400 Systolic blood pressure 160 mm[Hg] REGISTERED PHARMACY TECHNICIAN-C Kendall Mcbride REGISTERED PHARMACY TECHNICIAN Work Phone: [facility] Work Phone: 01-26-2022 10:09-0400 Diastolic blood pressure 55 mm[Hg] REGISTERED PHARMACY TECHNICIAN-C Kendall Mcbride REGISTERED PHARMACY TECHNICIAN Work Phone: [facility] Work Phone: 01-26-2022 10:09-0400 Systolic blood pressure 115 mm[Hg] REGISTERED PHARMACY TECHNICIAN-C Kendall Mcbride REGISTERED PHARMACY TECHNICIAN Work Phone: [facility] Work Phone: 01-26-2022 10:07-0400 Body mass index (BMI) [Percentile] Per age and sex 89.7 % REGISTERED PHARMACY TECHNICIAN-C Kendall Mcbride REGISTERED PHARMACY TECHNICIAN Work Phone: [facility] Work Phone: 01-26-2022 10:07-0400 Body mass index (BMI) [Ratio] 27.4 kg/m2 REGISTERED PHARMACY TECHNICIAN-C Kendall Mcbride REGISTERED PHARMACY TECHNICIAN Work Phone: [facility] Work Phone: 01-26-2022 10:07-0400 Body temperature 97.8 [degF] REGISTERED PHARMACY TECHNICIAN-C Kendall Mcbride REGISTERED PHARMACY TECHNICIAN Work Phone: [facility] Work Phone: 01-26-2022 10:07-0400 Body weight 89.35 kg REGISTERED PHARMACY TECHNICIAN-C Kendall Mcbride REGISTERED PHARMACY TECHNICIAN Work Phone: [facility] Work Phone: 01-26-2022 10:07-0400 Heart rate 66 /min REGISTERED PHARMACY TECHNICIAN-C Kendall Mcbride REGISTERED PHARMACY TECHNICIAN Work Phone: [facility] Work Phone: 01-26-2022 10:07-0400 Respiratory rate 18 /min REGISTERED PHARMACY TECHNICIAN-C Kendall Mcbride REGISTERED PHARMACY TECHNICIAN Work Phone: [facility] Work Phone: 01-26-2022 10:07-0400 SaO2% (BldA) [Mass fraction] 100 % REGISTERED PHARMACY TECHNICIAN-C Kendall Mcbride REGISTERED PHARMACY TECHNICIAN Work Phone: [facility] Work Phone: 01-23-2022 14:39-0400 Body mass index (BMI) [Percentile] Per age and sex 90.4 % REGISTERED PHARMACY TECHNICIAN-C Kendall Mcbride REGISTERED PHARMACY TECHNICIAN Work Phone: [facility] Work Phone: 01-23-2022 14:39-0400 Body mass index (BMI) [Ratio] 27.6 kg/m2 REGISTERED PHARMACY TECHNICIAN-C Kendall Mcbride REGISTERED PHARMACY TECHNICIAN Work Phone: [facility] Work Phone: 01-23-2022 14:39-0400 Body temperature 98.6 [degF] REGISTERED PHARMACY TECHNICIAN-C Kendall Mcbride REGISTERED PHARMACY TECHNICIAN Work Phone: [facility] Work Phone: 01-23-2022 14:39-0400 Body weight 89.86 kg REGISTERED PHARMACY TECHNICIAN-C Kendall Mcbride REGISTERED PHARMACY TECHNICIAN Work Phone: [facility] Work Phone: 01-23-2022 14:39-0400 Diastolic blood pressure 74 mm[Hg] REGISTERED PHARMACY TECHNICIAN-C Kendall Mcbride REGISTERED PHARMACY TECHNICIAN Work Phone: [facility] Work Phone: 01-23-2022 14:39-0400 Heart rate 84 /min REGISTERED PHARMACY TECHNICIAN-C Kendall Mcbride REGISTERED PHARMACY TECHNICIAN Work Phone: [facility] Work Phone: 01-23-2022 14:39-0400 Respiratory rate 16 /min REGISTERED PHARMACY TECHNICIAN-C Kendall Mcbride REGISTERED PHARMACY TECHNICIAN Work Phone: [facility] Work Phone: 01-23-2022 14:39-0400 SaO2% (BldA) [Mass fraction] 97 % REGISTERED PHARMACY TECHNICIAN-C Knedall Mcbride REGISTERED PHARMACY TECHNICIAN Work Phone: [facility] Work Phone: 01-23-2022 14:39-0400 Systolic blood pressure 122 mm[Hg] REGISTERED PHARMACY TECHNICIAN-C Kendall Mcbride REGISTERED PHARMACY TECHNICIAN Work Phone: [facility] Work Phone: Encounters Encounter Date Encounter Type Care Provider Facility Start: 04-13-2024 Encounter for genera l adult medical examination without abnormal findings Kendall Mcbride [facility] Start: 03-30-2024 End: 03-30-2024 ambulatory Kendall Mcbride C Facility:[facility] Start: 11-12-2023 End: 11-12-2023 ambulatory Kendall Mcbride REGISTERED PHARMACY TECHNICIAN [place] Start: 11-12-2023 End: 11-12-2023 ambulatory Lawson Friend Facility:[facility] Start: 06-17-2023 ambulatory Kendall Mcbride REGISTERED PHARMACY TECHNICIAN [place] [facility] Start: 06-10-2023 End: 06-10-2023 ambulatory Kendall Mcbride REGISTERED PHARMACY TECHNICIAN [facility] Start: 06-04-2023 End: 06-05-2023 Emergency department patient visit Kendall Mcbride REGISTERED PHARMACY TECHNICIAN Facility:[facility] Start: 03-13-2022 End: 03-13-2022 Patient encounter procedure REGISTERED PHARMACY TECHNICIAN-C Kendall Mcbride REGISTERED PHARMACY TECHNICIAN Work Phone: [facility] Start: 03-13-2022 End: 03-13-2022 Patient encounter procedure REGISTERED PHARMACY TECHNICIAN-C Kendall Mcbride REGISTERED PHARMACY TECHNICIAN Work Phone: [facility] Start: 03-11-2022 End: 03-11-2022 Patient encounter procedure REGISTERED PHARMACY TECHNICIAN-C Kendall Mcbride REGISTERED PHARMACY TECHNICIAN Work Phone: [facility] Start: 03-10-2022 End: 03-10-2022 Patient encounter procedure REGISTERED PHARMACY TECHNICIAN-C Kendall Mcbride REGISTERED PHARMACY TECHNICIAN Work Phone: [facility] Start: 03-07-2022 End: 03-08-2022 Emergency department patient visit REGISTERED PHARMACY TECHNICIAN-C Kendall Reed REGISTERED PHARMACY TECHNICIAN Work Phone: [facility] Start: 03-06-2022 End: 03-06-2022 Patient encounter procedure REGISTERED PHARMACY TECHNICIAN-C Kendall Reed REGISTERED PHARMACY TECHNICIAN Work Phone: [facility] Start: 03-06-2022 End: 03-06-2022 Patient encounter procedure REGISTERED PHARMACY TECHNICIAN-C Kendall Reed REGISTERED PHARMACY TECHNICIAN Work Phone: [facility] Gastroenterology Start: 03-02-2022 End: 03-02-2022 Patient encounter procedure REGISTERED PHARMACY TECHNICIAN-C Kendall Mcbride REGISTERED PHARMACY TECHNICIAN Work Phone: [facility] Start: 02-28-2022 End: 02-28-2022 Emergency department patient visit REGISTERED PHARMACY TECHNICIAN-C Kendall Mcbride REGISTERED PHARMACY TECHNICIAN Work Phone: [facility] Start: 02-27-2022 End: 02-27-2022 Emergency department patient visit REGISTERED PHARMACY TECHNICIAN-C Kendall Mcbride REGISTERED PHARMACY TECHNICIAN Work Phone: [facility] Start: 02-26-2022 End: 02-26-2022 Patient encounter procedure REGISTERED PHARMACY TECHNICIAN-C Kendall Mcbride REGISTERED PHARMACY TECHNICIAN Work Phone: [facility] Start: 02-23-2022 End: 02-23-2022 Patient encounter procedure REGISTERED PHARMACY TECHNICIAN-C Kendall Mcbride REGISTERED PHARMACY TECHNICIAN Work Phone: [facility] Start: 02-23-2022 End: 02-23-2022 Patient encounter procedure REGISTERED PHARMACY TECHNICIAN-C Kendall Mcbride REGISTERED PHARMACY TECHNICIAN Work Phone: [facility] Start: 02-11-2022 End: 02-11-2022 Patient encounter procedure REGISTERED PHARMACY TECHNICIAN-C Kendall Mcbride REGISTERED PHARMACY TECHNICIAN Work Phone: [facility] Start: 01-26-2022 End: 01-26-2022 Patient encounter procedure REGISTERED PHARMACY TECHNICIAN-C Kendall Mcbride REGISTERED PHARMACY TECHNICIAN Work Phone: [facility] Start: 01-23-2022 End: 01-23-2022 Patient encounter procedure REGISTERED PHARMACY TECHNICIAN-C Kendall Siegelder REGISTERED PHARMACY TECHNICIAN Work Phone: [facility] Start: 10-24-2021 Patient encounter status REGISTERED PHARMACY TECHNICIAN-C Kendall Siegelder REGISTERED PHARMACY TECHNICIAN Work Phone: [facility] Work Phone: Procedures Date Procedure Procedure Detail Performing Clinician Start: 03-13-2022 Diagnostic radiograp hy of abdomen REGISTERED PHARMACY TECHNICIAN-C Kendall Mcbride REGISTERED PHARMACY TECHNICIAN Work Phone: Start: 03-11-2022 Diagnostic radiograp hy of abdomen REGISTERED PHARMACY TECHNICIAN-C Kendall Mcbride REGISTERED PHARMACY TECHNICIAN Work Phone: Start: 03-08-2022 Computed tomography of abdomen and pelvis with contrast REGISTERED PHARMACY TECHNICIAN-C Kendall Mcbride REGISTERED PHARMACY TECHNICIAN Work Phone: Start: 02-27-2022 Plain chest X-ray REGISTERED PHARMACY TECHNICIAN-C Kendall Reed REGISTERED PHARMACY TECHNICIAN Work Phone: Start: 02-26-2022 Pelvis X-ray REGISTERED PHARMACY TECHNICIAN-C Kendall Siegelder REGISTERED PHARMACY TECHNICIAN Work Phone: Start: 02-23-2022 Echography of scrotu m and contents REGISTERED PHARMACY TECHNICIAN-C Kendall Siegelder REGISTERED PHARMACY TECHNICIAN Work Phone: Lactoferrin measurement REGISTERED PHARMACY TECHNICIAN-C Kendall Siegelder REGISTERED PHARMACY TECHNICIAN Work Phone: Plan of Treatment Date Care Activity Detail Author Start: 03-13-2022 Diagnostic radiograp hy of abdomen Abdomen Single View [facility] Work Phone: Start: 03-02-2022 Patient referral [facility] Work Phone: Start: 02-27-2022 [facility] Work Phone: Start: 01-23-2022 Patient referral [facility] Work Phone: Helicobacter pylori IgG Ab [Units/volume] in Serum [facility] Work Phone: Patient Education [facility] Work Phone: Patient referral [facility] Work Phone: Payers Date Payer Category Payer Private Health Insurance [id number] 2023 Self-pay [id number] 2023 Unknown [id number] 2023 Unknown [id number] Private Health Insurance SELF PAY INSURAN CE [id number] Unknown SELF PAY INSURANCE [id number] Unknown [id number] Unknown [id number] Unknown [id number] Unknown [id number] Unknown [id number] Unknown [id number] Unknown [id number] Social History Date Type Detail Facility Start: 02-23-2022 End: 03-13-2022 Tobacco smoking status NHIS Unknown if ever smoked [facility] Work Phone: Start: 2005 Sex Assigned At Male [facility] Work Phone: Mental Status Date Assessment Result Facility 02-27-2022 Cognitive function Voice/Name [facility] Work Phone: Evaluation note Note Date & Type Note Facility Evaluation note Diagnosis Onset Date Pilonidal cyst noneactive Pilonidal cyst with abscess acute Pilonidal cyst with abscess acute Testicular pain, left acute [facility] Work Phone: Evaluation note Note Date & Type Note Facility Evaluation note Diagnosis Onset Date Pilonidal cyst noneactive Pilonidal cyst with abscess acute Pilonidal cyst with abscess acute Testicular pain, left acute Strain of left iliopsoas muscle acute [facility] Work Phone: Evaluation note Note Date & Type Note Facility Evaluation note Diagnosis Onset Date Pilonidal cyst noneactive Pilonidal cyst with abscess acute Pilonidal cyst with abscess acute Testicular pain, left acute Strain of left iliopsoas muscle acute Generalized anxiety disorder acute Panic attacks acute PTSD (post-traumatic stress disorder) acute Abdominal pain acute [facility] Work Phone: Evaluation note Note Date & Type Note Facility Evaluation note Diagnosis Onset Date Pilonidal cyst noneactive Pilonidal cyst with abscess acute Pilonidal cyst with abscess acute Testicular pain, left acute Strain of left iliopsoas muscle acute Panic attacks acute PTSD (post-traumatic stress disorder) acute Generalized anxiety disorder chronic Abdominal pain acute Generalized anxiety disorder chronic [facility] Work Phone: Hospital Discharge instructions Note Date & Type Note Facility Hospital Discharge instructions [facility] Work Phone: Hospital Discharge instructions Note Date & Type Note Facility Hospital Discharge instructions Additional Instructions Your exam is normal. All your labs, EKG and chest x-ray are normal. This may all be secondary to anxiety. Follow-up with your doctor. [facility] Work Phone: Hospital Discharge instructions Note Date & Type Note Facility Hospital Discharge instructions [facility] Work Phone: Hospital Discharge instructions Note Date & Type Note Facility Hospital Discharge instructions [facility] Work Phone: Hospital Discharge instructions Note Date & Type Note Facility Hospital Discharge instructions [facility] Work Phone: Hospital Discharge instructions Note Date & Type Note Facility Hospital Discharge instructions [facility] Work Phone: Summary Purpose Family History No Family History Records Found Relationship Condition Age at Onset Recorded Date/T loan father Alcoholism Unknown Asthma Unknown Malignant neoplasm of prostate Unknown Mental disorder Unknown mother Anemia Unknown Anxiety Unknown Depression Unknown Diabetes mellitus Unknown Hypertension Unknown grandmother Depression Unknown grandfather Myocardial infarction Unknown Malignant neoplasm of skin Unknown Advance Directives No Advanced Directives Records Found Advance Directive Response Recorded Date/ Time Living Will No February 27, 2022 3:41pm Power of Sanding Supervisor No February 27 2 3:41pm Advance Directive Response Recorded Date/ Time Living Will No February 28, 2022 12:48pm Power of Sanding Supervisor No February 28 2 12:48pm Advance Directive Response Recorded Date/ Time Living Will No March 07, 2022 10:17pm Power of Sanding Supervisor No March 07 2 10:17pm Chief Complaint and Reason for Visit Chief Complaint FOLLOW UP FOR CYST PILONIDAL CYST PILODINAL CYST GROIN PAIN LEFT TESTICULAR PAIN Reason for Visit Pilonidal cyst Pilonidal cyst with abscess Pilonidal cyst with abscess Testicular pain, left Chief Complaint FOLLOW UP FOR CYST PILONIDAL CYST PILODINAL CYST GROIN PAIN LEFT TESTICULAR PAIN Left groin xray CHEST PAIN Reason for Visit Pilonidal cyst Pilonidal cyst with abscess Pilonidal cyst with abscess Testicular pain, left Strain of left iliopsoas muscle Chief Complaint FOLLOW UP FOR CYST PILONIDAL CYST PILODINAL CYST GROIN PAIN LEFT TESTICULAR PAIN Left groin xray CHEST PAIN ANXIETY Reason for Visit Pilonidal cyst Pilonidal cyst with abscess Pilonidal cyst with abscess Testicular pain, left Strain of left iliopsoas muscle Chief Complaint FOLLOW UP FOR CYST PILONIDAL CYST PILODINAL CYST GROIN PAIN LEFT TESTICULAR PAIN Left groin xray CHEST PAIN ANXIETY fu from EDx2; anxiety? misc compliants E-ORDER ABD PAIN LABSPEC DROP OFF EORDER 2 W FU Reason for Visit Pilonidal cyst Pilonidal cyst with abscess Pilonidal cyst with abscess Testicular pain, left Strain of left iliopsoas muscle Generalized anxiety disorder Panic attacks PTSD (post-traumatic stress disorder) Abdominal pain Chief Complaint FOLLOW UP FOR CYST PILONIDAL CYST PILODINAL CYST GROIN PAIN LEFT TESTICULAR PAIN Left groin xray CHEST PAIN ANXIETY fu from EDx2; anxiety? misc compliants E-ORDER ABD PAIN LABSPEC DROP OFF EORDER 2 W FU ABDOMINAL PAIN Reason for Visit Pilonidal cyst Pilonidal cyst with abscess Pilonidal cyst with abscess Testicular pain, left Strain of left iliopsoas muscle Generalized anxiety disorder Panic attacks PTSD (post-traumatic stress disorder) Abdominal pain Chief Complaint FOLLOW UP FOR CYST PILONIDAL CYST PILODINAL CYST GROIN PAIN LEFT TESTICULAR PAIN Left groin xray CHEST PAIN ANXIETY fu from EDx2; anxiety? misc compliants E-ORDER ABD PAIN LABSPEC DROP OFF EORDER 2 W FU ABDOMINAL PAIN Reason for Visit Pilonidal cyst Pilonidal cyst with abscess Pilonidal cyst with abscess Testicular pain, left Strain of left iliopsoas muscle Panic attacks PTSD (post-traumatic stress disorder) Generalized anxiety disorder Abdominal pain Generalized anxiety disorder Additional Source Comments (unrecognized sect ion and content) No Status Records FoundNo Status Records Found INFORMATION SOURCE (unrecogn ized section and content) DATE CREATED AUTHOR 05/29/2019 [facility] DATE CREATED AUTHOR AUTHOR'S DIANE REED 04/15/2024 [facility] Goals (unrecognized section and content) Goals may be documented in a n alternate sectionGoals may be documented in an alternate sectionGoals may be documented in an alternate sectionGoals may be documented in an alternate sectionGoals may be documented in an alternate sectionGoals may be documented in an alternate section FOR RECORDS PERTAINING TO PATIENTS WHO ARE [...] BE BASED ON THE PRIMARY CLINICAL RECORDS. [employer] [facility]. provides no warranty or guarantee of the accuracy or completeness of information in this document.
[2025-05-20 18:35] VITALS: BP 132/90; PULSE 94; RESP 23; O2SAT 96
[2025-05-20 18:44] VITALS: BP 132/90; PULSE 94; RESP 23; TEMP 36.6; O2SAT 96
== END 2025-05-20 18:48 | disposition home or self-care (01) ==
LOC: ED 18:27
PROVIDERS: Emergency Provider Emergency Medicine; Visit Provider Emergency Medicine
DX: R06.4 Hyperventilation (principal); F32.A Depression, unspecified; F43.10 Post-traumatic stress disorder, unspecified; F41.0 Panic disorder [episodic paroxysmal anxiety]; R00.0 Tachycardia, unspecified; Z79.899 Other long term (current) drug therapy
CPT/HCPCS: 99282; A4216